=== PATIENT | female | born 1985 | race Caucasian/White ===

== ENCOUNTER 2022-12-12 08:22 | Observation (INO) | payer OTHER, SELFPAY ==
[2022-12-12] VITALS (26 sets, daily range): BP systolic 101–147; BP diastolic 60–119; PULSE 67–107; RESP 14–31; TEMP 36.6–37; O2SAT 97–100; BMI 25.3
--- NOTE | ~2022-12-12 | XR_ITS ---
Left Humerus Technique: AP and lateral views were obtained. Clinical History: Status post fall Findings: No fracture or dislocation is seen. Osseous alignment is anatomic. Visualized joint spaces are grossly preserved. Soft tissues are unremarkable. Impression: Unremarkable examination. No fracture or dislocation. Reviewed, dictated and finalized at location . Impression: Unremarkable examination. No fracture or dislocation.
--- NOTE | ~2022-12-12 | XR_ITS ---
XR chest 1V DATE: 12/12/2022 09:08 INDICATION: Seizure TECHNIQUE: AP chest COMPARISON: September 09, 2017 portable AP chest FINDINGS: Normal heart size. No hilar or mediastinal enlargement. No pulmonary infiltrate or consolid ation, pleural effusion or pulmonary vascular congestion or pneumothorax. Minimal thoracic dextroscoliosis. IMPRESSION: No active cardiopulmonary disease Reviewed, dictated and finalized at location B.
--- NOTE | ~2022-12-12 | CT_ITS ---
Non-contrast Head CT History: Status post fall COMPARISON: 12/12/2022 Technique: Axial non-contrast imaging of the brain was performed. Dose reduction technique was used on this scan by utilizing automated exposure control and iterative reconstruction technique. The dose -length product (DLP) was 605.33 mGy-cm. Findings: There is no evidence of intracranial hemorrhage, mass lesion, or acute infarct. Brain par enchyma appears normal. The ventricles and subarachnoid spaces are normal in size. The calvarium ap pears normal. The visualized paranasal sinuses and mastoid air cells are clear. Impression: No significant abnormality seen. Reviewed, dictated and finalized at location . Impression: No significant abnormality seen.
--- NOTE | ~2022-12-12 | CT_ITS ---
EXAMINATION: CT brain wo con DATE: 12/12/2022 08:59 INDICATION: Head injury. TECHNIQUE: Computed tomography (CT) of the head was performed without intravenous contrast. The mA wa s adjusted according to patient size. Iterative reconstruction technique was employed. The dose-lengt h product was 605.33 mGy-cm. COMPARISON: Head CT 09/09/2017 FINDINGS: There is no intracranial hemorrhage, acute infarction, or abnormal intracranial mass lesion . The ventricles are normal in size. There is mild mucosal thickening in the ethmoid sinuses. The mas toid air cells are normal. The orbits are normal. IMPRESSION: 1. Normal brain. Reviewed, dictated and finalized at location A. IMPRESSION: 1. Normal brain.
[2022-12-12 08:57] LABS: Ethanol < 10 mg/dL (<10)
[2022-12-12 09:18] LABS: Basophils Percent Auto 0.4 % (0.2-1.2); Hematocrit 43.5 % (37.0-47.0); Hemoglobin 14.1 g/dL (12.0-15.0); Immature Granulocyte Absolute 0.02 K/mm3 (0.00-0.031); Immature Granulocyte Percent A 0.3 % (0-0.5); Lymphocytes Absolute Auto 1.75 K/mm3 (0.9-3.2); Lymphocytes Percent Auto 23.4 % (18.3-44.2); Mean Corpuscular HGB Conc 32.4 g/dl (32-36); Mean Corpuscular Hemoglobin 27.9 pg (26-34); Mean Platelet Volume 10.8 fl (7.4-10.4); Monocytes Absolute Auto 0.5 K/mm3 (0.1-0.6); Monocytes Percent Auto 6.9 % (2.6-8.5); Neutrophils Absolute Auto 5.2 K/mm3 (1.3-6.7); Platelet Count Result 227 k/mm3 (150-375); Red Blood Count 5.06 M/mm3 (4.2-5.4); Red Cell Distribution Width 13.2 % (11.5-14.5); White Blood Count 7.5 K/mm3 (4.5-10.0)
[2022-12-12] MEDS: SODIUM CHLORIDE 0.9% IV 1,000 ML 999 ML IV CONT ×2 (09:18→12:29)
[2022-12-12 09:30] LABS: Alanine Aminotransferase 27 U/L (6-35); Albumin Level 4.6 g/dL (3.5-5.1); Alkaline Phosphatase 89 U/L (38-126); Anion Gap 14 mmol/L (8-16); Aspartate Amino Transferase 42 U/L (14-36); Bilirubin,Total 0.9 mg/dL (0.2-1.3); Blood Urea Nitrogen 27 mg/dL (7-17); Calcium 9.6 mg/dL (8.4-10.2); Carbon Dioxide 21 mmol/L (22-30); Chloride 105 mmol/L (98-107); Estimated CRCL calculation 42 ml/min; Estimated Glomerular Filt Rate 39; Glucose 92 mg/dL (65-110); Lipase 543 U/L (23-300); Sodium 140 mmol/L (137-145)
[2022-12-12 09:50] LABS: Amphetamine Screen Urine Negative (Negative); Barbiturate Screen Urine Negative (Negative); Benzodiazepines Screen Urine Negative (Negative); Cannabinoid Screen Urine Negative (Negative); Cocaine Screen Urine Negative (Negative); Methadone Screen Urine Negative (Negative); Opiate Screen Urine Negative (Negative); Phencyclidine Screen Urine Negative (Negative)
--- NOTE | 2022-12-12 10:08 | ED.GENADULT ---
HPI - General Adult General Chief complaint: Unspecified Stated complaint: convulsions Time Seen by Provider: 12/12/22 08:24 History of Present Illness HPI narrative: Patient is a 37-year-old female who [facility] having a [facility]. Patient initially altered upon arrival but then awoke. She was oriented x3 and could verbalize fact that she has history of seizures. She has not been compliant with her home Keppra. She has been in penitentiary due to opiate issues. Denies any extremity pain or other issue at this time. No additional provoking factors. Related Data Home Medications Medication Instructions Recorded Confirmed levetiracetam 500 mg tablet 500 mg PO BID 12/12/22 12/12/22 (Keppra) Allergies Allergy/AdvReac Type Severity Reaction Status Date / Time No Known Allergies Allergy Unverified 09/12/16 15:47 Review of Systems Review of Systems: ROS unobtainable: Yes unobtainable due to mental status PMFSH Surgical History Surgical History (Updated 12/12/22 @ 18:43 by Vasiliy Olivas MD) Surgical history unknown Social History Social History Smoking packs per day: 1 Smoking cigarettes per day: 20.0 Smoking status: Current every day smoker Tobacco type: cigarettes Alcohol intake: never Substance use type: opiates Lack of Transportation: No Lack of Food: Never True Current Housing: I Have Housing Concerned About Future Housing: No Difficulty Paying Gas/Electric Bills: No Difficulty Paying for Meds: Decline to Answer Currently Unemployed: Decline to Answer Education: Decline to Answer Difficulty w/ Childcare or Family Care: Decline to Answer Spiritual care concerns: No Exam Narrative: GENERAL: Well-appearing, well-nourished, and in no acute distress. HEAD: Normocephalic, atraumatic. EYES: PERRL and EOMI. ENT: Mucous membranes moist. NECK: Supple. CHEST: Clear to auscultation. No respiratory distress. HEART: Regular rate and rhythm. Normal peripheral pulses. ABDOMEN: Soft, nontender, nondistended. EXTREMITIES: Normal range of motion. No edema. SKIN: Warm, dry, scattered bruises. NEURO: Alert and oriented x3. In between episodes of seizures where patient is rhythmically shaking [id number]. No fixed tonic-clonic movements. Patient has no eye deviation. Intermittently will respond to pain. PSYCH: Normal mood and affect. Course Course Emergency Course: 1008: Repeat seizure x 2. Tachycardic into 160's. Ativan 2mg given. Will also give 1g Keppra. 1224: Discussed case with Dr. Bolaños. Patient has received her Keppra load. He feels if she is 4 hours seizure-free after the Keppra load should be able to be discharged with Keppra 750 mg twice a day. 1420: Patient with additional seizure. Will give additional 500 mg bolus of Keppra prior neurology recommendation. Additionally patient will go to the ICU and has been accepted by Dr. Light. Patient has had a seizure where it seems as if she is breathing throat. Only one of the seizures where she responsive to pain. There could be a component of pseudoseizures as well but given her previous history we will defer to the possibility that these are frequent recurrent seizures. Vital Signs Vital signs: Vital Signs Temperature 98 F 12/12/22 08:22 Pulse Rate 87 12/12/22 08:22 Respiratory Rate 24 H 12/12/22 08:22 Blood Pressure 114/75 12/12/22 08:22 Pulse Oximetry 99 12/12/22 08:22 Oxygen Delivery Room Air 12/12/22 08:22 Temperature 98.6 F 12/12/22 16:00 Pulse Rate 87 12/12/22 17:08 Respiratory Rate 14 12/12/22 17:08 Blood Pressure 110/71 12/12/22 17:08 Pulse Oximetry 98 12/12/22 17:08 Oxygen Delivery Room Air 12/12/22 08:22 Medical Decision Making Vital Signs Vital Signs: Vital Signs Temperature 98 F 12/12/22 08:22 Pulse Rate 87 12/12/22 08:22 Respiratory Rate 24 H 12/12/22 08:22 Blood Pressure 114/75 12/12/22 08:22 Pulse Oximetry 99
[2022-12-12 10:15] LABS: INR 1.1
[2022-12-12 10:16] LABS: Partial Thromboplastin Time 33.1 SECONDS (22.3-36.8)
[2022-12-12] MEDS: LORazepam INJ (*CRX) 2 MG/ML VIAL (10:17)
[2022-12-12] MEDS: levETIRAcetam 1000MG/NACL100ML 1,000 MG/100 ML BAG 400 MG IVPB (10:17)
--- NOTE | 2022-12-12 10:19 | PC.NURSE ---
[address] SA[address] Bridges observed this pt having what appeared to be a seizure for less than 30 seconds. evgeny Martinez went and retrieved seizure pads and seizure precautions were initiated. About 5 minutes later pt had another seizure that lasted 1-2 minutes, Dr. Olivas at bedside, 2mg Ativan administered per verbal order. Yuliana JACQUES administered the medication
--- NOTE | 2022-12-12 10:36 | PC.NURSE ---
Patient more awake at this time. Patient able to answer questions and states she has a history of seizures and is prescribed 1,000mg of Keppra daily. Patient states she has been out of her medication for awhile .
--- NOTE | 2022-12-12 10:45 | PC.NURSE ---
Patient began having full body seizure witnessed by this RN. Provider to bedside and verbal order for 1mg ativan to be given. Episode lasted about 1 minute. After convulsions were over, patient was able to answer questions.
[2022-12-12] MEDS: LORazepam INJ (*CRX) 2 MG/ML VIAL 1 MG IV PUSH (11:23)
--- NOTE | 2022-12-12 13:47 | PC.NURSE ---
Patient began having another full body seizure lasting around 2 minutes. 1/5 mg of ativan verbal order given.
[2022-12-12] MEDS: levETIRAcetam 500MG/NACL 100ML 500 MG/100 ML BAG 400 MG IVPB (14:04)
[2022-12-12] MEDS: LORazepam INJ (*CRX) 2 MG/ML VIAL IV PUSH ×3 (14:07→18:15)
--- NOTE | 2022-12-12 14:08 | PC.NURSE ---
Patient had another seizure episode lasting 2.5 minutes. verbal order for 1.5mg of Ativan to be given.
--- NOTE | 2022-12-12 14:20 | PC.NURSE ---
pt had another episode lasting roughly 1.5 minutes pt, able to withdraw from pain, pt A&O 4 directly after episode.
[2022-12-12 15:36] LABS: Creatine Kinase 442 U/L (30-135)
[2022-12-12 15:37] LABS: Lactic Acid Reflex 1.1 mmol/L (0.7-2.0)
--- NOTE | 2022-12-12 16:14 | PM.IMHP ---
H&P: HPI History of Present Illness Date/Time: 12/12/22 16:14 Chief Complaint: Convulsions Narrative: This is a 37-year-old female patient who was [facility] The patient has a history of heroin use. The patient stated she has a history of seizures and has not taken any of her medication. She also stated that she is addicted to narcotics and has not had any narcotics for 5 days. The patient is currently in longterm for opiate use. Her creatinine was 1.5 BUN is 27. GFR 39. Are total creatinine kinase is 442. Lipase is 523. Toxicology screen was negative. CT of the brain was read as normal. Chest x-ray was read as no active cardiopulmonary disease. Neurology has been consulted. The patient was given IV fluids, Keppra, and Ativan multiple times. Review of Systems Review of Systems: All systems reviewed & are unremarkable except as noted in HPI and below Constitutional: Constitutional: Reports as per HPI and Reports no additional constitutional complaints Eyes: Eyes: Reports as per HPI and Reports no additional eye complaints ENT: Reports system reviewed and no additional complaints, except as documented and Reports Normal hearing present Cardiovascular: Cardiovascular: Reports no additional cardiovascular complaints Respiratory: Respiratory: Reports no additional respiratory complaints and Reports no additional respiratory complaints Gastrointestinal: Gastrointestinal: Reports as per HPI and Reports no additional gastrointestinal complaints Musculoskeletal: Musculoskeletal: Reports no additional musculoskeletal complaints Integumentary/Breasts: Skin/Breast: Reports system reviewed and no additional complaints, except as docu and Reports as per HPI Neurologic: Reports system reviewed and no additional complaints, except as documented, Reports as per HPI and Reports Normal hearing present Psychiatric: Psychiatric: Reports no additional psychiatric complaints and Reports as per HPI Endocrine: Endocrine: Reports no additional endocrine complaints Hematologic/Lymphatic: Hematologic/Lymphatic: Reports no additional hematologic/lymphatic complaints Allergic/Immunologic: Allergic/Immunologic: Reports no additional allergic/immunologic complaints [facility] Past Medical History Medical History (Updated 12/12/22 @ 20:23 by Sri Myers NP) Heroin abuse Seizures Surgical History Surgical History (Updated 12/12/22 @ 20:13 by Sri Myers NP) History of tonsillectomy Social History Social History (Updated 12/12/22 @ 20:14 by Sri Myers NP) Social History: Heroin use. The patient has had 2 biological children and they have been placed with DCFS. She lives with her boyfriend. Code status full code Smoking packs per day: 1 Smoking cigarettes per day: 20.0 Smoking status: Current every day smoker Tobacco type: cigarettes Alcohol intake: never Substance use type: opiates Lack of Transportation: No Lack of Food: Never True Current Housing: I Have Housing Concerned About Future Housing: No Difficulty Paying Gas/Electric Bills: No Difficulty Paying for Meds: Decline to Answer Currently Unemployed: Decline to Answer Education: Decline to Answer Difficulty w/ Childcare or Family Care: Decline to Answer Spiritual care concerns: No Meds Home Medications and Allergies Home Medications Medication Instructions Recorded Confirmed Type levetiracetam 500 mg tablet 500 mg PO BID 12/12/22 12/12/22 History (Carmencita) Allergies Allergy/AdvReac Type Severity Reaction Status Date / Time No Known Allergies Allergy Unverified 09/12/16 15:47 Vital Signs Vital Signs - 24 hr 12/12/22 08:22 12/12/22 09:20 12/12/22 08:28 Temperature 36.6 C Pulse Rate 87 79 86 Respiratory Rate 24 H 18 16 Blood Pressure 114/75 147/119 H Pulse Oximetry 99 99 98 Oxygen Delivery Room Air 12/12/22 08:31 12/12/22 08:46 12/12/22 08:47 [place]a
--- NOTE | 2022-12-12 16:26 | ADMGEN ---
This patient, Shannan Orta, was admitted to Intensive Care Unit-5. Patient/family oriented to hospital policies and general routines including ID bracelet, bed and alarms, visiting hours, pain management, procedures, bathroom and other care routines, personal items, smoking policy, room service/diet, and visiting hours. Information on how to activate the Rapid Response Team has been discussed. Patient/Family are encouraged to report perceived risks to care and to ask questions if they do not understand what they are told or what they should do.
[2022-12-12] MEDS: LACTATED RINGERS 1,000 ML 100 ML IV CONT (16:35)
[2022-12-12] MEDS: levETIRAcetam Tablet 250 MG, levETIRAcetam Tablet 500 MG 750 MG PO (20:01)
[2022-12-13] VITALS (8 sets, daily range): BP systolic 99–130; BP diastolic 55–97; PULSE 64–103; RESP 14–26; TEMP 36.5–36.7; O2SAT 96–99
[2022-12-13] MEDS: LORazepam INJ (*CRX) 2 MG/ML VIAL IV PUSH ×3 (02:00→09:05)
[2022-12-13] MEDS: LACTATED RINGERS 1,000 ML 100 ML IV CONT (03:36)
[2022-12-13 03:49] LABS: Hematocrit 36.1 % (37.0-47.0); Hemoglobin 11.8 g/dL (12.0-15.0); Mean Corpuscular HGB Conc 32.7 g/dl (32-36); Mean Corpuscular Volume 85.7 fl (80-100); Mean Platelet Volume 10.5 fl (7.4-10.4); Platelet Count Result 187 k/mm3 (150-375); Red Blood Count 4.21 M/mm3 (4.2-5.4); Red Cell Distribution Width 13.2 % (11.5-14.5); White Blood Count 5.9 K/mm3 (4.5-10.0)
[2022-12-13 04:01] LABS: Alanine Aminotransferase 22 U/L (6-35); Albumin Level 3.7 g/dL (3.5-5.1); Alkaline Phosphatase 71 U/L (38-126); Anion Gap 5 mmol/L (8-16); Aspartate Amino Transferase 36 U/L (14-36); Bilirubin,Total 0.7 mg/dL (0.2-1.3); Blood Urea Nitrogen 18 mg/dL (7-17); Calcium 8.5 mg/dL (8.4-10.2); Carbon Dioxide 22 mmol/L (22-30); Chloride 112 mmol/L (98-107); Estimated CRCL calculation 50 ml/min; Estimated Glomerular Filt Rate 51; Glucose 80 mg/dL (65-110); Potassium 3.5 mmol/L (3.4-5.0); Sodium 139 mmol/L (137-145)
--- NOTE | 2022-12-13 05:01 | PC.NURSE ---
1999-scheduled Keppra given. pt noted to have jerking seizure-like activity. Did not last more than a minute. Immediately alert and oriented after 0030- pt has been repeatedly asking for food, Sri Myers called. Updated on most recent seizure activity being at 1999 and pt's requests to eat. Sri okora'ed regular diet. 0045 pt finishes eating and states i think I'm going to have another seizure . The patient noted to have jerking seizure-like activity again. Did not last a minute, but had several sporadic intermittent episodes. Immediately alert and oriented after 0150- Pt has more seizure-like activity, immediately after pt states i can't remember my name . Dr. Domingo called 0156, states okay to give an Ativan dose and continue to monitor. 0200 ativan given, pt states Valium has worked better for me in the past can I have that instead? 0435 pt awoke and has more seizure-like activity, Dr. Domingo called and informed 0436. Pt's significant other then comes out of room saying she's trying to get out of bed . This RN and another ran into room but pt fell onto floor before we were able to reach her. 0440 Dr Domingo called and informed of fall. Orders received
--- NOTE | 2022-12-13 08:19 | PM.EVENT ---
Event Note Event Note Event Note: Nurse notified me the patient sustained a fall. Patient was seen and examined at the bedside. She denies any head trauma. She is moving all extremities but reports left arm pain. Plan head CT, left humeral x-ray. Patient is complaining of insomnia. She had been treated on trazodone in the past. Trazodone 50 mg p.o. q.h.s.. ordered.
[2022-12-13 08:35] LABS: Lipase 714 U/L (23-300); Triglycerides 121 mg/dL (<150)
[2022-12-13] MEDS: POTASSIUM CHLORIDE 20 MEQ ER TABLET 40 MEQ PO (08:48)
[2022-12-13] MEDS: KCL 20 MEQ/D5/0.45% SOD CHL 1,000 ML 100 ML IV CONT (08:49)
--- NOTE | 2022-12-13 09:09 | WPDCNINT ---
Assessment and Plan Assessment and plan (1) Seizures: Code(s): R56.9 - Unspecified convulsions Status: Acute Assessment and Plan: Patient states she has history of epilepsy but was not on any treatment. Now presented with frequent seizures from alf Her presentation is questionable as her seizures are not classical and I suspect a component of pseudoseizures Continue Keppra Continue p.r.n. Ativan Continue seizure precautions EEG ordered Neurology consulted Head CT negative (2) Acute kidney injury: Code(s): N17.9 - Acute kidney failure, unspecified Status: Acute Assessment and Plan: Patient presented with elevated creatinine of 1.5. Baseline unknown Patient has mild rhabdomyolysis. She states that she was dehydrated at the end alf. Denies any filf-eou-cmnkbil medication use Check renal ultrasound Continue IV fluids Monitor CK level Check urine electrolytes (3) IV drug abuse: Code(s): F19.10 - Other psychoactive substance abuse, uncomplicated Status: Acute Assessment and Plan: Patient admits to IV drug abuse. Uses fentanyl but has not used any 3 weeks Screen for hepatitis and HIV (4) Pancreatitis: Code(s): K85.90 - Acute pancreatitis without necrosis or infection, unspecified Status: Acute Assessment and Plan: Patient has elevated lipase. Denies alcohol use Triglyceride level normal Check abdominal ultrasound Denies any abdominal pain at this time. No nausea vomiting. Clear liquid diet Plan DVT prophylaxis -SCDs Nutrition -clear liquid diet Code Status - Full Code Bookkeeping Clerks Supervisor Consult Note Consult date: 12/13/22 Reason for consult: Seizures HPI: Shannan Orta is a 37 year old female history of IV drug abuse and history of epilepsy presented to ER yesterday from alf with complaints of seizure. Patient states she used to take seizure medication long time ago but quit taking. Admitted IV fentanyl use denies any significant alcohol or drug use. She has been in alf for last few weeks. She states that she was discharged medically in the past from alf. ER patient had multiple episodes of seizure which were brief. She was also found to be having elevated creatinine and and lipase. She was given Keppra and admitted to ICU for further evaluation management. Overnight patient had a fall ICU and repeat head CT left humerus x-ray was done which were negative and a sitter at bedside were placed. Patient states that she does not remember anything and someone in the alf told her that she fell and hit her head. Which was all over her head. She complains of intermittent blurred vision and thinks the clock has 2 borders. She also points to her chest for pain and states it is secondary to frequent sternal rubs that medical staff has done who check on her during her seizures. She rates at 8/10 worse with deep breathing and palpation. Pain is sharp achy in quality no radiation. Patient states that since she has received does not remember her name her boyfriend's. States she knows she is in the hospital but does not know name of the hospital. Patient denies fever, chest pain, shortness of breath, cough, nausea vomiting, abdominal pain,, diarrhea, headache or constipation. All other systems were reviewed and were negative Since admission to ICU patient has exhibited several signs suggestive of pseudo seizures as patient once when nursing staff wanted to give her Ativan requested Valium while she she was having jerky movement stating that it works better for her. Her boyfriend is sitting at bedside who is completely indifferent to her seizure episode and continues to brother phone while she is having seizures. She is able to have conversation with him but then states that she does not remember his name. Patient was talking on the phone with a friend telling them that she is admitted at [facility] while she told me few minutes ago that she does not know
--- NOTE | 2022-12-13 09:13 | PC.NURSE ---
0853: pt wanting food and water; discussed we couldn't do that right now due to needing to be nothing by mouth until after the ultrasound; pt started crying stating she hasn't eaten in 8 days and started seizing 0854: called Dr. Light to bedside; patient stopped seizing 0855: pt started seizing again but did grab RN's arm at one point; when RN asked to let go, pt immediately let go; 00: pt continuing to seize move side to side in bed 09: ativan given; seizure immediately stopped; pt tearful didn't know name but knew we were at [facility] and started asking about her belongings from the long term
[2022-12-13] MEDS: levETIRAcetam Tablet 250 MG, levETIRAcetam Tablet 500 MG 750 MG PO (09:47)
--- NOTE | 2022-12-13 10:07 | PC.NURSE ---
0940: called to bedside as patient was having another seizure; RN stated that unfortunately she could not have any more ativan at this point 0942: patient awake and talking and asking about leaving ama as long as we wouldn't call the snf on her; RN stated I would not be doing that and it is her decision 0958: pt signed AMA papers; IV access was removed; paper scrubs and hospital socks were given 1005: pt's boyfriend wheeled her out in wheelchair to leave
[2022-12-13 10:36] LABS: Hepatitis B Surface Antigen Negative (Negative)
[2022-12-13 10:38] LABS: HIV 1/2 Ab P24 Ag Result Negative (Negative)
[2022-12-13 10:42] LABS: HAV RESULT Negative (Negative); Hepatitis B Core IgM Result Negative (Negative)
[2022-12-13 10:55] LABS: Hepatitis C Virus Antibody Reactive (Negative)
[2022-12-17 14:17] LABS: Hepatitis C RNA, Quant PCR 65600 IU/mL
== END 2022-12-13 10:05 | disposition left against medical advice (07) ==
LOC: ANHED 14:22 → ANHICU 14:42
PROVIDERS: Internal Medicine; Admitting Provider Hospitalist; Emergency Provider Emergency Medicine; Visit Provider Hospitalist
DX: R56.9 Unspecified convulsions (principal); N17.9 Acute kidney failure, unspecified; R74.8 Abnormal levels of other serum enzymes; M62.82 Rhabdomyolysis; Z11.4 Encounter for screening for human immunodeficiency virus [HIV]; K85.90 Acute pancreatitis without necrosis or infection, unspecified; T42.6X6A Underdosing of other antiepileptic and sedative-hypnotic drugs, initial encounter; Z91.148 Patient's other noncompliance with medication regimen for other reason; S09.90XA Unspecified injury of head, initial encounter; M79.602 Pain in left arm; W19.XXXA Unspecified fall, initial encounter; R00.0 Tachycardia, unspecified; R79.89 Other specified abnormal findings of blood chemistry; G47.00 Insomnia, unspecified; F11.90 Opioid use, unspecified, uncomplicated; F17.210 Nicotine dependence, cigarettes, uncomplicated; Z79.899 Other long term (current) drug therapy
CPT/HCPCS: 36415; 70450; 71045; 73060; 80053; 80074; 80307; 81025; 82550; 83605; 83690; 83735; 84478; 85025; 85027; 85610; 85730; 86703; 87522; 96361; 96365; 96366; 96374; 96375; 96376; 99285; A9270; G0378; G0379; G0432; J1953; J2060; J3480; J7030; J7120

== ENCOUNTER 2022-12-16 14:07 | Emergency (ER) | payer OTHER, SELFPAY ==
[2022-12-16 14:05] VITALS: BP 112/80; PULSE 96; RESP 25; TEMP 36.6; O2SAT 99
--- NOTE | 2022-12-16 14:18 | ECG_ITS ---
Measurements Intervals [place] Rate: 94 P: 42 GA: 128 QRS: 87 QRSD: 94 T: 70 QT: 342 QTc: 428 Interpretive Statements SINUS RHYTHM MINIMAL Q WAVES- INFERIOR LEADS BASELINE ARTIFACT- V3-V4 BORDERLINE ECG NO PREVIOUS ECG AVAILABLE FOR COMPARISON Electronically Signed On 12-16-2022 16:26:56 CDT by Roman Berumen D.O.
--- NOTE | 2022-12-16 14:20 | ED.GENADULT ---
HPI - General Adult General Chief complaint: Seizure Stated complaint: seizure-like activity Time Seen by Provider: 12/16/22 14:13 History of Present Illness HPI narrative: 37 year old female history of seizures, inmate, brought in by guards for seizure like behavior. Per longterm staff, patient seen on camera going to ground slowly and having seizure like behavior. Patient brought to ED for further evaluation. Denied head strike, evidence of ingestions, medical complaints prior to seizure episode. ROS limited due to condition Related Data Home Medications Medication Instructions Recorded Confirmed levetiracetam 500 mg tablet 500 mg PO BID 12/12/22 12/12/22 (Keppra) Allergies Allergy/AdvReac Type Severity Reaction Status Date / Time No Known Allergies Allergy Unverified 12/16/22 14:19 [facility] Past Medical History Medical History Heroin abuse Seizures Surgical History Surgical History History of tonsillectomy Social History Social History Social History: Heroin use. The patient has had 2 biological children and they have been placed with DCFS. She lives with her boyfriend. Code status full code Smoking packs per day: 1 Smoking cigarettes per day: 20.0 Smoking status: Current every day smoker Tobacco type: cigarettes Alcohol intake: never Substance use type: opiates Lack of Transportation: No Lack of Food: Never True Current Housing: I Have Housing Concerned About Future Housing: No Difficulty Paying Gas/Electric Bills: No Difficulty Paying for Meds: Decline to Answer Currently Unemployed: Decline to Answer Education: Decline to Answer Difficulty w/ Childcare or Family Care: Decline to Answer Spiritual care concerns: No Exam Narrative: General: Somnolent, calm and cooperative, no acute distress, phonating, sitting comfortably during visit HEENT: Pupils equal round and reactive to light, patient with eyes closed, however tracks, blinks to threat, extra ocular movements intact, no conjunctival injection, head atraumatic, neck supple without meningismus, no tongue lacerations, missing multiple teeth Cardiovascular: Regular rate and rhythm, no visible jugular venous distension Respiratory: Lungs clear to auscultation bilaterally, no wheezing/rales/rhonchi Abdominal: soft, non-tender, non-distended, no guarding, no rebound/peritoneal signs, no costovertebral tenderness to palpation Back: no midline tenderness to palpation, no step offs Extremities: No edema, palpable peripheral pulses, warm, well perfused, no tenderness to bilateral calves, no clonus Neurological: Somnolent Course Consultations Consultation #1: Case Discussed with neurologist Dr. Bolaños. Recommended 500mg PO BID to be prescribed so she could take it in longterm. Date: 12/16/22 Time: 16:32 Vital Signs Vital signs: Vital Signs Temperature 97.8 F 12/16/22 14:05 Pulse Rate 96 12/16/22 14:05 Respiratory Rate 25 H 12/16/22 14:05 Blood Pressure 112/80 12/16/22 14:05 Pulse Oximetry 99 12/16/22 14:05 Oxygen Delivery Room Air 12/16/22 14:05 Temperature 97.8 F 12/16/22 14:05 Pulse Rate 88 12/16/22 16:09 Respiratory Rate 14 12/16/22 16:09 Blood Pressure 116/71 12/16/22 16:09 Pulse Oximetry 98 12/16/22 16:09 Oxygen Delivery Room Air 12/16/22 15:02 Medical Decision Making MDM Narrative Medical decision making narrative: 37 year old female history of seizure, inmate brought in by longterm staff for seizure like behavior. Physical exam benign, atraumatic, somnolent however blinks to threat, tracks room, no clonus, sitting comfortably in bed, vitals stable. Differential diagnosis includes but not limited to: seizure vs psychogenic non-epileptic seizures. Intracranial process considered, unlikely at this time given
[2022-12-16 14:39] LABS: Basophils Percent Auto 0.7 % (0.2-1.2); Hematocrit 38.6 % (37.0-47.0); Hemoglobin 12.5 g/dL (12.0-15.0); Immature Granulocyte Absolute 0.02 K/mm3 (0.00-0.031); Immature Granulocyte Percent A 0.4 % (0-0.5); Lymphocytes Percent Auto 37.4 % (18.3-44.2); Mean Corpuscular HGB Conc 32.4 g/dl (32-36); Mean Corpuscular Hemoglobin 28.1 pg (26-34); Mean Corpuscular Volume 86.7 fl (80-100); Mean Platelet Volume 11.2 fl (7.4-10.4); Monocytes Absolute Auto 0.4 K/mm3 (0.1-0.6); Monocytes Percent Auto 8.6 % (2.6-8.5); Neutrophils Absolute Auto 2.4 K/mm3 (1.3-6.7); Neutrophils Percent Auto 52.9 % (45.5-73.1); Platelet Count Result 233 k/mm3 (150-375); Red Blood Count 4.45 M/mm3 (4.2-5.4); White Blood Count 4.6 K/mm3 (4.5-10.0)
[2022-12-16 14:49] LABS: Lactic Acid Reflex 1.8 mmol/L (0.7-2.0)
[2022-12-16 14:52] LABS: Acetaminophen 13 ug/mL (10-30); Ethanol < 10 mg/dL (<10); Salicylate < 1.0 mg/dL (2-20)
[2022-12-16 15:02] VITALS: PULSE 69; O2SAT 97
[2022-12-16 15:06] LABS: Anion Gap 9 mmol/L (8-16); Blood Urea Nitrogen 18 mg/dL (7-17); Calcium 9.6 mg/dL (8.4-10.2); Carbon Dioxide 25 mmol/L (22-30); Chloride 106 mmol/L (98-107); Estimated CRCL calculation 47 ml/min; Estimated Glomerular Filt Rate 51; Glucose 89 mg/dL (65-110); Potassium 3.8 mmol/L (3.4-5.0); Sodium 140 mmol/L (137-145)
[2022-12-16 15:13] LABS: Alanine Aminotransferase 30 U/L (6-35); Albumin Level 4.3 g/dL (3.5-5.1); Alkaline Phosphatase 68 U/L (38-126); Aspartate Amino Transferase 44 U/L (14-36); Bilirubin,Total 0.7 mg/dL (0.2-1.3)
[2022-12-16 16:09] VITALS: BP 116/71; PULSE 88; RESP 14; O2SAT 98
--- NOTE | 2022-12-16 16:36 | PM.EVENT ---
Event Note Event Note Event Note: I was asked to admit the patient. I had previously admitted the patient as she was having pseudoseizures. The correctional officers are at the bedside with the patient. The patient has pseudo seizures and I believe that she needs psychiatric care of which we do not offer here at [facility]. It was reported that the patient would not received any seizure medication over the weekend in shelter. I personally spoke with the correctional officer lieutenant to ensure me that the patient would receive medication over the weekend. The patient was given a dose of Keppra. I spoke with the neurologist who suggested that the patient have the loading dose of Keppra and then be sent home on p.o. medications. The patient may be released back to shelter. The patient has had a previous admission of which she has signed out against medical advice. Several years ago the patient had been incarcerated and the same events have occurred. When I spoke with the correctional officers they stated that this patient has done this four other times. The patient has a history of heroin abuse. I feel that this admission is not appropriate at this time and that she may be returned safely back to shelter. Neurology recommended that the patient be given Keppra 500 mg p.o. b.i.d. prescription to be given at the shelter.
[2022-12-16] MEDS: levETIRAcetam 500MG/NACL 100ML 500 MG/100 ML BAG 400 MG IVPB (16:55)
[2022-12-16 17:19] VITALS: BP 101/70; PULSE 83; RESP 16; O2SAT 99
== END 2022-12-16 17:21 ==
PROVIDERS: Emergency Provider Emergency Medicine
DX: R56.9 Unspecified convulsions (principal); F11.10 Opioid abuse, uncomplicated; R94.31 Abnormal electrocardiogram [ECG] [EKG]
CPT/HCPCS: 36415; 80048; 80076; 80307; 83605; 85025; 93005; 96365; 96376; 99284; J1953

== ENCOUNTER 2025-01-30 09:39 | Emergency (ER) | payer MEDICAID, SELFPAY ==
--- OUTSIDE RECORDS SUMMARY | 2013-03-24 06:31 | XMS_ITS | Continuity of Care Document ---
Author Organization [facility] Address [address] [place] [address] [place] [address] Phone Care Team Providers Care Senior Director Finance Name Role Phone Lincoln Rivas MD Unavailable Unavailable Allergies, Adverse Reactions, Alerts Substance Reaction Status Criticality naproxen Active No Information Medications Medication Instructions Dosage Effective Dates (start - stop) Status Comments Alton 5 mg-325 mg tablet take 1 tablet by oral route every 6 hours as needed for pain - Active PRN for pain, avoid driving or operate machines Procedures Procedure Date PREV VISIT, EST, AGE 18-39 OFFICE/OUTPATIENT VISIT, [facility] Advance Directives Directive Yes / No Effective Date File Name No Information Encounters Encounter Description Practice Location Reason(s) For Visit Diagnoses Date Provider Providers Copied on Encounter PREV VISIT, EST, AGE 18-39 [facility], [address] [place], [id number], [place] tel:[phone] [facility] Physical (chief complaint) Routine Medical ExamRoutine Medical Exam Rob Stark. [address] [place], [place], [id number], [place]. tel:[phone] Referring Provider: Lincoln Rivas, [address] [place], [id number]. tel:[phone] OFFICE/OUTPAT IENT VISIT, [facility], [address] [place], [id number], tel:[phone] [facility] hip pain (chief complaint) Pain in joint involving lower legLumbago Rob Stark. [address] [place], [id number], . tel:[phone] Referring Provider: Hali Wiseman [address], [place], [place], [id number]. tel:[phone] Family History Family Member Type Diagnosis Age At Onset Mother Problem (finding) RA Brother Problem (finding) Alive and well Father Problem (finding) Unknown Disease Payers Payer name Insurance type Covered democrat ID Authoriza tion(s) No Information Social History Type Description Quantity Date Captured Comments Alcohol Use Details No Caffeine Use Details Unknown Tobacco Use Status No Information Smoking Status Current every day smoker 2012 Sex Female Vital Signs Date / Time: Height Weight BMI Pulse Rate Blood Pressure Temperature Respiratory Rate Body Surface Area Head Circumference BMI percentile Pulse Ox Inhaled Ox 11:34 AM 63.00 in 129.75 lbs 22.9 8 kg/m eter (2) 78 /min 111/74 mm[Hg] 97.6 F 16 /min Chief Complaint And Reason For Visit From encounter dated '03/24/2013 11:31'. Physical (chief complaint) Plan Of Treatment Date Type Action Status Goal Tobacco cessation counseling completed Goal Tobacco cessation counseling completed Referral Ordered: Physical Therapy (related to Lumbago) ordered Referral Referred To: Physical Therapy Ordered: Referral: Physical Therapy. Evaluate and treat. ordered Referral Ordered: LUMBAR XRAY AP AND LAT ONLY ordered Referral Ordered: HIP XRAY AP/LAT Bilateral ordered History Of Present Illness Encounter Date Complaint History Of Prese nt Illness No Information Instructions Date Instruction Additional Infor mation stretching exercise Related to L umbago Assessments Type Assessment Date No Information Mental Status Date Cognitive Assessment Orientation - [place] ed to time, place, person, situation.
--- OUTSIDE RECORDS SUMMARY | 2016-05-22 19:00 | XMS_ITS | Continuity of Care Document ---
Author Organization [facility] Address [address] [place] [address] Phone Care Team Providers Care Vp Design Name Role Phone Damon Burkett MD Unavailable Unavailable Advance Directives Directive Yes / No Effective Date File Name No Information Encounters Encounter Description Practice Location Reason(s) For Visit Diagnoses Date Provider Providers Copied on Encounter [facility], [address], [place], [place], [id number], tel:[phone] [facility] No Information Kwadwo Jose. [address] [place] [address], [address], [place], [place], [id number], . tel:[phone] Referring Provider: Damon Burkett, [address] [place] [address], [place], [address]. tel:[phone] Family History Family Member Type Diagnosis Age At Onset No Information Payers Payer name Insurance type Covered constitution party ID Authoriza tishin(s) [place] [employer] [id number] Social History Type Description Quantity Date Captured Comments Sex Female Smoking Status No Information Chief Complaint And Reason For Visit No Information Reason For Referral Reason For Referral No Information History Of Present Illness Encounter Date Complaint History Of Prese nt Illness No Information Functional Status Date Functional Assessmen t No Information Instructions Date Instruction Additional Infor mation No Information Assessments Type Assessment Date No Information Patient Care Teams Name Effective Dates (start - stop) Status Members No Information
--- OUTSIDE RECORDS SUMMARY | 2025-01-30 09:45 | XMS_ITS | Clinical Summary ---
Author Organization [facility] Address [address] [place] [address] Phone Care Team Providers Care Social Insurance Adviser Name Role Phone Nilson Ledesma APRN, MARKET ANALYST Primary Care Provid er Lalita Pizarro APRN, RN RADIOLOGY Unavailable [phone] Allergies Active Allergy Reactions Criticality Noted Date Comments Naproxen Nausea 02/04/2016 Medications sertraline (ZOLOFT) 50 MG Tablet 3 Active QUEtiapine (SEROquel) 25 MG TabletIndicatio ns:Agitation Take 25 mg by mouth 2 times daily as needed. Indications: Agitation Active QUEtiapine Fumarate (SEROquel) 50 MG Tablet Take 3 Tablets by mouth nightly. 180 Tablet 3 Active Additional Information Patient not taking.Reported on 06/14/2023 divalproex (DEPAKOTE) 500 MG Tablet Delayed Response Take 1 Tablet by mouth 2 times daily. Take 500 mg twice a day for 4 weeks, followed by 500 mg daily for 2 weeks, and then stopped taking 90 Tablet 3 Active Additional Information Patient not taking.Reported on 06/14/2023 Priftin 150 MG Tablet Take 150 mg by mouth daily. 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 Acute pyelonephritis 08/15/2020 JAY (acute kidney injury) 08/15/2020 Hyponatremia 08/15/2020 Acute cystitis 08/15/2020 Anxiety Methamphetamine use Opioid abuse Resolved Problems Problem Noted Date Diagnosed Date Resolved Date Seizure 01/23/2023 Immunizations Immunization Administration Dates Next Due Influenza Vaccine, Quadrivalent, PF 02/20/2017 Family History Medical History Relation Name Comments No Known Problems Father Hypertension Mother Hypoparathyroidism Mother Lupus Mother Relation Name Status Comments Father Alive Mother Alive Social History Tobacco Use Types Packs/Day Years Used Date Smoking Tobacco: Every Day Cigarettes 0.5 20 Smokeless Tobacco: Never Alcohol Use Standard Drinks/Week Comments No 0 (1 standard drink = 0.6 oz pur e alcohol) Comments Unknown Sex and Gender Information Value Date Recorded Sex Assigned at Not on file Legal Sex Female 9:35 PM CDT Gender Identity Not on file Sexual Orientation Not on file Last Filed Vital Signs Vital Sign Reading Time Taken Comments Blood Pressure 134/76 06/14/2023 2:24 PM BOOKMAKER MAP Pulse 78 06/14/2023 2:24 PM BOOKMAKER MAP Temperature 36.1 C (97 F) 06/14/2023 2:24 PM BOOKMAKER MAP Respiratory Rate 18 04/19/2023 12:58 PM BOOKMAKER MAP Oxygen Saturation 98% 06/14/2023 2:24 PM BOOKMAKER MAP Inhaled Oxygen Concentration - - Weight 66.7 kg (147 lb) 06/14/2023 2:24 PM BOOKMAKER MAP Height 160 cm (5' 3) 06/14/2023 2:24 PM BOOKMAKER MAP Body Mass Index 26.04 06/14/2023 2:24 PM BOOKMAKER MAP Plan of Treatment Health Maintenance Due Date Last Done Comments TdaP Immunization 1986 Hepatitis B Immunization (1 of 3 - 19+ 3-dose series) 2005 Pneumococcal Immunization Co mbined (1 of 2 - PCV) 2005 Pap Smear 11/07/2007 Human Papillomavirus (HPV) Immunization (1 - 3-dose SCDM series) 2013 Cervical Cancer Screening (CCS) 2016 HPV/Cotest 2016 Influenza Immunization (#1) 2025 02/20/2017 SARS-COV-2 Immunization (2023-25 season) 2025 Respiratory Syncytial Virus (RSV) Immunization (Adult) (1 - 1-dose 75+ series) 2061 Meningococcal Immunization (ACWY) Aged Out No longer eligible based on patient's age to complete this topic Rotavirus Immunization Aged Out No lo nger eligible based on patient's age to complete this topic Insurance MEDICAID [place] Advance Directives * Full Code (Latest Code Status on File) Date Activated Date Inactivated Comments 01/20/2023 9:38 AM 01/23/2023 5:55 PM CPR-Full Gustavo atment: FULL ARREST: Attempt Resuscitation/CPR wit intubation and mechanical ventilation. PRE-ARREST: Use entire range of life support measures to stabilize the patient. * Full Code Date Activated Date Inactivated Comments 08/15/2020 12:50 AM 08/17/2020 8:23 PM CPR-Full Tr eatment: FULL ARREST: Attempt Resuscitation/CPR wit intubation and mechanical ventilation. PRE-ARREST: Use entire range of life support measures to stabilize the patient. Care Teams Social Insurance Adviser Relationship Specialty Start Date End Date Nilson Ledesma PAPER COATING SUPERVISOR, MARKET ANALYST PCP - General Advanced Practice Nurse 02/08/23 Lalita Pizarro APRN, RN RADIOLOGY [address] [place] [address] Nurse Practitioner Advanced Practice Nurse 06/14/23
--- OUTSIDE RECORDS SUMMARY | 2025-01-30 09:45 | XMS_ITS | Clinical Summary ---
Author Organization [facility] Address [address] [place] [address] Care Team Providers Care Advanced Practice Psychiatric Nurse Name Role Phone Unavailable Primary Care Provider Unavailabl e Source Comments [facility],non-owned Affiliates and Associated Physician Practices is amultiple site organization consisting of ambulatory clinics and hospital sitesin [place], [place], [place] and [place]. This disclosure is being madepursuant to the Care Everywhere program and may not contain all information available regarding this patient. Last updated 18.[facility] Allergies Active Allergy Reactions Criticality Noted Date Comments Naproxen GI Discomfort 02/19/2017 Medications * This document contains information received from the source organization and may not represent a complete record from that organization. * Be aware that medications may not be up to date on this document. Alwaysverify current medications with the patient. hydrOXYzine hcl (ATARAX) 25 MG tabletIndicatio ns:Anxiety Neurosis (Inactive) Take 1 Tab by mouth 4 times daily as needed Reasons: Anxiety Neurosis 120 Tab 1 7 Active LORazepam (ATIVAN) 1 MG tabletIndicatio ns:Anxiety Take 1 Tab by mouth every 8 hours as needed for Anxiety Reasons: Feeling Anxious 90 Tab 7 Active levETIRAcetam (KEPPRA) 1000 MG tabletIndicatio ns:Focal Seizure Take 1 Tab by mouth 2 times daily Reasons: Partial Onset Seizures 60 Tab 1 7 Active QUEtiapine (SEROQUEL) 100 MG tabletIndicatio ns:psychosis Take 1 Tab by mouth at bedtime Reasons: psychosis 30 Tab 1 7 Active QUEtiapine (SEROQUEL) 50 MG tabletIndicatio ns:Psychosis,ps ychosis Take 1 Tab by mouth once daily Reasons: Psychosis, psychosis 30 Tab 1 7 Active nicotine (NICODERM CQ) 21 MG/24HR patchIndication s:Nicotine Dependence Apply 1 Patch to skin once daily Remove old patch before applying new patch. Reasons: Nicotine Addiction 5 Patch 1 7 Active Active Problems Problem Noted Date Diagnosed Date Seizures 02/22/2017 Polysubstance abuse 02/22/2017 Severe episode of recurrent major depressive disorder, without psychotic features 02/19/2017 Immunizations Immunization Administration Dates Next Due INFLUENZA VACCINE, QUADR. (F LUZONE; FLULAVAL; FLUARIX; AFLURIA QUADRIVALENT; 6MO+), 0.5 ML (IIV4) 02/20/2017 Social History Tobacco Use Types Packs/Day Years Used Date Smoking Tobacco: Every Day Cigarettes Smokeless Tobacco: Never Tobacco Cessation:Ready to Q uit: Not Asked; Counseling Given: Not Answered Alcohol Use Standard Drinks/Week Comments No 0 (1 standard drink = 0.6 oz pur e alcohol) Comments Unknown Sex and Gender Information Value Date Recorded Sex Assigned at Not on file Legal Sex Female 2:53 AM CDT Gender Identity Not on file Sexual Orientation Not on file Last Filed Vital Signs Vital Sign Reading Time Taken Comments Blood Pressure 132/86 12/26/2023 7:41 PM CDT Pulse 69 12/26/2023 7:41 PM CDT Temperature 36 C (96.8 F) 12/26/2023 7:41 PM CDT Respiratory Rate 18 12/26/2023 7:41 PM CDT Oxygen Saturation 99% 12/26/2023 7:41 PM CDT Inhaled Oxygen Concentration - - Weight 62.1 kg (137 lb) 12/26/2023 7:41 PM CDT Height 160 cm (5' 3) 12/26/2023 7:41 PM CDT Body Mass Index 24.27 12/26/2023 7:41 PM CDT Plan of Treatment Health Maintenance Due Date Last Done Comments DTAP/TDAP/TD VACCINES (1 - Tdap) 2005 HEPATITIS B VACCINE (1 of 3 - 19+ 3-dose series) 2005 PNEUMOCOCCAL VACCINE (1 of 2 - PCV) 2005 PAP SMEAR 11/07/2007 HPV VACCINE (1 - 3-dose SCDM series) 2013 DEPRESSION SCREENING 05/27/2024 COVID-19 VACCINE ( season) 2025 INFLUENZA VACCINE (#1) 2025 02/20/2017 ZOSTER VACCINE (1 of 2) 2036 HIV SCREENING Completed 08/16/2020 HEPATITIS C SCREENING Completed 08/17/2020 , 08/17/2020, 08/17/2020, Additional history exists HIB VACCINE Aged Out No longer eligi ble based on patient's age to complete this topic MENINGOCOCCAL (Group B) VACCINE SHARED DECISION-MAKING Aged Out No longer eligible based on patient's age to complete this topic MENINGOCOCCAL GROUPS A/C/Y/W VACCINE Aged Out No longer eligible based on patient's age to complete this topic [place] [address] [place] [address] MEDICAID - OUT OF STATE [facility] Advance Directives * Full Code (Latest Code Status on File) Date Activated Date Inactivated Comments 02/25/2017 10:16 PM 02/26/2017 12:20 PM * Full Code Date Activated Date Inactivated Comments 02/25/2017 6:30 PM 02/25/2017 10:16 PM * Full Code Date Activated Date Inactivated Comments 02/24/2017 6:39 PM 02/25/2017 6:30 PM * Full Code Date Activated Date Inactivated Comments 02/24/2017 6:23 PM 02/24/2017 6:39 PM * Full Code Date Activated Date Inactivated Comments 02/21/2017 2:59 PM 02/24/2017 6:23 PM
--- OUTSIDE RECORDS SUMMARY | 2025-01-30 09:45 | XMS_ITS | Encounter Summary ---
Author Organization [facility] Address [address] [place] [address] Care Team Providers Care Sports Complex Attendant Name Role Phone No, Physician Primary Care Provider [phone] Encounter Details Date Type Department Care Team (Late st Contact Info) Description 07/17/2017 Documentation [facility] [address] [place] [address] Lalita Mckeon RN Social History Tobacco Use Types Packs/Day Years Used Date Smoking Tobacco: Every Day Cigarettes Smokeless Tobacco: Never Alcohol Use Standard Drinks/Week Comments No 0 (1 standard drink = 0.6 oz pur e alcohol) Comments Unknown Sex and Gender Information Value Date Recorded Sex Assigned at Not on file Legal Sex Female 2:33 AM BUSINESS MANAGER [employer] Gender Identity Not on file Sexual Orientation Not on file documented as of this encounter Plan of Treatment Not on file documented as of this encounter Visit Diagnoses Not on filedocumented in this encounter Additional Health Concerns Infection Onset Date Last Indicated Resolved Time MRSA Comment:02/19/17 Nasal Swab negative for MRSA, need one more negative to clear MRSA flag MRSA+Vaginal wnd 11/22/15 11/23/2013 11/23/2013 01/11/2021 5:00 AM CDT documented as of this encounter Care Teams Sports Complex Attendant Relationship Specialty Start Date End Date No, Physician PCP - General 09/07/16 documented as of this encounter
--- OUTSIDE RECORDS SUMMARY | 2025-01-30 09:45 | XMS_ITS | Encounter Summary ---
Author Organization [facility] Healthcare Address [address] [place] [address] Care Team Providers Care Clerical And Administrative Workers Name Role Phone No, Physician Primary Care Provider [phone] Encounter Details Date Type Department Care Team (Late st Contact Info) Description 06/11/2017 Documentation [facility] [address] [place] [id number] Yanira Garrison MD [address] [address] Social History Tobacco Use Types Packs/Day Years Used Date Smoking Tobacco: Every Day Cigarettes Smokeless Tobacco: Never Alcohol Use Standard Drinks/Week Comments No 0 (1 standard drink = 0.6 oz pur e alcohol) Comments Unknown Sex and Gender Information Value Date Recorded Sex Assigned at Not on file Legal Sex Female 2:33 AM PNEUMATIC TOOL OPERATOR Gender Identity Not on file Sexual Orientation [...] documented as of this encounter Care Teams Clerical And Administrative Workers Relationship Specialty Start Date End Date No, Physician PCP - General 09/07/16 documented as of this encounter
[2025-01-30 09:46] VITALS: BP 134/67; PULSE 106; RESP 20; TEMP 36.4; O2SAT 100
--- NOTE | 2025-01-30 09:56 | ED.MEDCLEAR ---
HPI - Medical Clearance General Chief complaint: Medical Clearance Stated complaint: needs medical clearance for rehab Time Seen by Provider: 01/30/25 09:45 Source: patient and RN notes reviewed Mode of arrival: ambulatory Limitations: no limitations History of Present Illness HPI Narrative: 39-year-old female presents Express Care requesting medical clearance to be admitted to an inpatient drug rehab today. Patient says she has medical clearance because she told them that she had a possible seizure 2 days ago. Patient says she was on the ground able unable to move says she is able to hear but not able to see. Patient has been diagnosed with epileptic seizures and pseudoseizures. Patient no longer takes Keppra. Patient denies having any other seizures since. Patient has no other complaints. Patient has no symptoms currently. Related Information Allergies Allergy/AdvReac Type Severity Reaction Status Date / Time No Known Allergies Allergy Unverified 12/16/22 14:19 Review of Systems Review of Systems: CONSTITUTIONAL: Denies fever, chills, or sweats. EYES: Denies visual changes, redness, or discharge. ENT: Denies rhinorrhea, congestion, sore throat, or otalgia. CARDIOVASCULAR: Denies chest pain, palpitations, dizziness, lightheadedness, or edema. RESPIRATORY: Denies cough or dyspnea. GASTROINTESTINAL: Denies abdominal pain, nausea, vomiting, or diarrhea. GENITOURINARY: Denies dysuria or hematuria. SKIN: Denies rash or itching. MUSCULOSKELETAL: Denies back pain, joint pain, or myalgia. NEUROLOGIC: Denies headache, numbness, loss of consciousness or weakness. Positive for seizure-like activity. PSYCHIATRIC: Denies anxiety or depression. All other systems reviewed are negative, except as documented in HPI. [facility] Past Medical History Medical History Heroin abuse Seizures Surgical History Surgical History History of tonsillectomy Social History Social History Social History: Heroin use. The patient has had 2 biological children and they have been placed with DCFS. She lives with her boyfriend. Code status full code Smoking packs per day: 1 Smoking cigarettes per day: 20.0 Smoking status: Current every day smoker Tobacco type: cigarettes Alcohol intake: never Substance use type: opiates Lack of Transportation: No Lack of Food: Never True Current Housing: I Have Housing Concerned About Future Housing: No Difficulty Paying Gas/Electric Bills: No Difficulty Paying for Meds: Decline to Answer Currently Unemployed: Decline to Answer Education: Decline to Answer Difficulty w/ Childcare or Family Care: Decline to Answer Spiritual care concerns: No Comments At the time of my signature, I reviewed and agree with the nursing past medical, surgical, social, and family history. There is no relevant family history pertinent to the patient complaint. Exam Narrative: GENERAL: This is a well-nourished, well-developed adult, in no apparent distress. They are non ill-appearing, nontoxic appearing. HEAD: normocephalic, atraumatic. EYES: Sclera clear/white. Conjunctiva normal. Vision is grossly intact. Extraocular movements intact. Pupils PERRLA EARS: External ears normal, Hearing grossly intact. NOSE: External nose normal THROAT: Mucous membranes moist, NECK: Neck supple, CARDIOVASCULAR: Regular rate and rhythm RESPIRATORY: Respiratory rate normal, respiratory effort nonlabored, no respiratory distress SKIN: warm, Dry, intact with no suspicious lesions or rash, good texture and turgor. NEURO: awake, alert, and oriented to person, place and time. There were no obvious focal neurologic abnormalities. Cranial nerve 2-12 grossly intact. EXTREMITIES: No joint tenderness, effusion, or edema noted. Course Course Emergency Course: Portions of this record may have been created with voice recognition software Level of Care: Express Care Visit Vital Signs Vital signs: Vital Signs Temperature 97.5 F L 01/30/25 09:46 Pulse Rate 106 H 01/30/25 09:46 Respiratory Rate 20 01/30/25 09:46 Blood Pressure 134/67 01/30/25 09:46 Pulse Oximetry 100 01/30/25 09:46 Oxygen Delivery Room Air 01/30/25 09:46 Temperature 97.5 F L 01/30/25 09:46 Pulse Rate 106 H 01/30/25 09:46 Respiratory Rate 20 01/30/25 09:46 Blood Pressure 134/67 01/30/25 09:46 Pulse Oximetry 100 01/30/25 09:46 Oxygen Delivery Room Air 01/30/25 09:46 Reviewed MDM - Medical Clearance MDM Narrative Medical decision making narrative: Patient likely had a pseudo-seizure. However she says she has a history of epileptic seizures. Spine the patient cannot be cleared medically here at [facility] and will need comprehensive workup and further evaluation management before she could be cleared to go to her rehab facility. Advised patient she go to the ER or dry to follow-up with her PCP to obtain medical clearance. Discussed physical exam findings. Advised supportive measures and signs/symptoms to go to the ER. Pt is appropriate for outpt treatment and f/u. Differential Diagnosis Differential diagnosis: Likely other (Seizure, pseudo seizure, medical clearance, syncope) Critical Care Time Critical Care Time Critical Care Time: No Discharge Plan Discharge Clinical Impression: Seizure-like activity Patient Disposition: Home Condition: Stable Instructions: Nonepileptic Seizures (ED) Additional Instructions: Please follow-up with your PCP or go to the ER for medical clearance for your possible seizure you had. Patient Language: Japanese Prescriptions: No Action levetiracetam [Keppra] 500 mg tablet 500 mg PO BID Qty: 30 0RF Follow-up/Referrals: PHYSICIAN,INORGANIC CHEMICAL TECHNICIAN [Primary Care Provider, Internal Medicine] Time of Disposition: 09:55
== END 2025-01-30 09:58 | disposition home or self-care (01) ==
DX: R56.9 Unspecified convulsions (principal); F17.210 Nicotine dependence, cigarettes, uncomplicated
CPT/HCPCS: 99211; G0463

== ENCOUNTER 2025-05-11 16:03 | Emergency (ER) | payer OTHER, SELFPAY ==
[2025-05-11 16:16] VITALS: BP 125/52; PULSE 88; RESP 20; TEMP 36.9; O2SAT 100
--- NOTE | 2025-05-11 17:11 | ED.GENADULT ---
HPI - General Adult General Chief complaint: Extremity Problem,Nontraumatic Stated complaint: Numb right hand Time Seen by Provider: 05/11/25 17:05 Source: patient, RN notes reviewed and old records reviewed Mode of arrival: ambulatory Limitations: no limitations History of Present Illness HPI narrative: 39 YEAR OLD FEMALE WHO PRESENTS TO [facility] WITH COMPLAINTS OF right hand numbness and tingling and shooting pains since awakening today. 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 Patient also reoorts 1 week duration of cough with some congestion and chest discomfort with her cough.no fevers sore throat or ear pain voiced.. MD complaint: right hand Onset (ago): day(s) (today her right hand and 1 week cough) Radiation: extremity (up into arm) Severity scale (1-10): 8 Quality: other (shooting pain) Treatments prior to arrival: none Related Data Home Medications ?Medication ?Instructions ?Recorded ?Confirmed ?Last Taken ?Type atomoxetine 40 mg capsule mg PO 05/11/25 Unknown History buspirone 15 mg tablet mg 05/11/25 Unknown History naltrexone microspheres 380 mg 380 mg IM ONCE 05/11/25 Unknown History intramuscular suspension,extended release (Vivitrol) olanzapine 5 mg tablet mg 05/11/25 Unknown History Allergies Allergy/AdvReac Type Severity Reaction Status Date / Time naproxen AdvReac Intermediate Nausea and Verified 05/11/25 16:28 Vomiting Review of Systems Review of Systems: CONSTITUTIONAL: Denies fever, chills, or sweats. EYES: Denies visual changes, redness, or discharge. ENT: reports rhinorrhea, congestion,no sore throat, or otalgia. CARDIOVASCULAR: Denies chest pain, palpitations, or edema. RESPIRATORY: reports cough denies dyspnea. GASTROINTESTINAL: no abdominal pain, nausea, vomiting, or diarrhea. GENITOURINARY: Denies dysuria or hematuria. SKIN: Denies rash or itching. MUSCULOSKELETAL: Denies back pain, joint pain, or myalgia.reports numbness in hand and shooting pain up into arm NEUROLOGIC: Denies headache, numbness reported right hand, no weakness. PSYCHIATRIC: positive for anxiety or depression. All systems reviewed & are unremarkable except as noted in HPI and below PMFSH Past Medical History Medical History (Updated 05/13/25 @ 21:37 by Gloria Farrell APRN) Hepatitis C Anxiety ADHD (attention deficit hyperactivity disorder) Methamphetamine use Heroin abuse Seizures Surgical History Surgical History (Updated 05/13/25 @ 21:06 by Gloria Farrell APRN) H/O tubal ligation History of tonsillectomy Social History Social History (Updated 05/13/25 @ 21:07 by Gloria Farrell APRN) Social History: Heroin use. The patient has had 2 biological children and they have been placed with DCFS. She lives with her boyfriend. Code status full code Smoking packs per day: 1 Smoking cigarettes per day: 20.0 Smoking status: Current every day smoker Tobacco type: cigarettes Alcohol intake: never Substance use type: opiates Other substance usage details: past heroin and fentanyl use Last use: STATES LAST USED METH ABOUT 3 WEEKS AGO 05/11/2025 relapsed Lack of Transportation: No Lack of Food: Never True Current Housing: I Have Housing Concerned About Future Housing: No Difficulty Paying Gas/Electric Bills: No Difficulty Paying for Meds: Decline to Answer Currently Unemployed: Decline to Answer Education: Decline to Answer Difficulty w/ Childcare or Family Care: Decline to Answer Gender identity (if verbalized by the patient): Female Spiritual care concerns: No Comments At time of signature, agree with nursing past medical, surgical, social and family history. There is no relevant family history pertinent to the presenting complaint Exam Narrative: GENERAL: Well-appearing, well-nourished, and in no acute distress.afebrile HEAD: Normocephalic, atraumatic. EYES: PERRLA and EOMI. ENT: Nares clear, no rhinorrhea or epistaxis. Mucous membranes moist.RM's normal throat pink with tonsils absent NECK: Supple.no lymphadenopathy CHEST: Clear to auscultation. No respiratory distress. occasional cough noted SAO2 100% on room air HEART: Regular rate and rhythm. No murmur heard. Normal peripheral pulses. ABDOMEN: Soft, nontender, nondistended, normal active bowel sounds. EXTREMITIES: Normal range of motion. No edema.Reports numbness with shooting pain in hand which goes into her distal arm, strong right radial pulse, nail beds lula briskly, able to move hand and fingers and wrist without difficulty,no specific pattern of stated numbness in hand SKIN: Warm, dry, no rash. NEURO: No focal deficits. Alert and oriented x3., Course Course Level of Care: Express Care Visit Vital Signs Vital signs: Vital Signs Temperature 36.9 C 05/11/25 16:16 Pulse Rate 88 05/11/25 16:16 Respiratory Rate 20 05/11/25 16:16 Blood Pressure 125/52 L 05/11/25 16:16 Pulse Oximetry 100 05/11/25 16:16 Oxygen Delivery Room Air 05/11/25 16:16 Temperature 36.9 C 05/11/25 16:16 Pulse Rate 88 05/11/25 16:16 Respiratory Rate 20 05/11/25 16:16 Blood Pressure 125/52 L 05/11/25 16:16 Pulse Oximetry 100 05/11/25 16:16 Oxygen Delivery Room Air 05/11/25 16:16 reviewed MDM MDM Narrative Medical decision making narrative: Patient reports numbness of right hand with shooting pains in distal wrist and forearm elisa prescribe prednisone for 5 days and recommended splint to be worn to right hand during sleep and Tylenol for pain,Advised supportive measures and signs/symptoms to go to the ER. Pt is appropriate for outpt treatment and f/u. Differential Diagnosis Differential Diagnosis: Differential diagnostic considerations for upper extremity injury include sprain/strain of wrist, fracture of wrist, finger sprain, dislocation of finger, fracture of hand, dislocation of shoulder, fracture of humerus, fracture of clavicle, laceration, tendon injury, carpal tunnel syndrome., tendonitis Critical Care Time Critical Care Time Critical Care Time: No Discharge Plan Discharge Clinical Impression: Tendinitis of right hand Patient Disposition: Home Condition: Stable Instructions: Antibiotic Form, Tendinitis (ED) Additional Instructions: Recommend hand splint to right hand to wear at night,may use ice or heat to forearm for comfort. Tylenol for pain Follow-up with orthopedic surgeon or hand surgery if continued problems Follow-up with PCP if further problems or concerns Ice to the area 20-30 minutes 4-6 times a day Elevate above heart If your symptoms persist, change or worsen significantly before you can contact your personal physician then please, without delay, go to the emergency department for further evaluation. Follow-up with PCP in 7-10 days or sooner if needed Steroid as prescribed take with food. Patient Language: Faroese Prescriptions: New prednisone 20 mg tablet 20 mg PO BID Qty: 10 0RF Rx Instructions: take with food acetaminophen 500 mg tablet 500 mg PO QID PRN (Reason: fever or pain) Qty: 30 0RF No Action olanzapine 5 mg tablet buspirone 15 mg tablet atomoxetine 40 mg capsule PO Vivitrol 380 mg suspension,extended rel recon 380 mg IM ONCE levetiracetam [Keppra] 500 mg tablet 500 mg PO BID Qty: 30 0RF Follow-up/Referrals: UNKNOWN,DOCTOR [Primary Care Provider] Stand Alone Forms: Work/School Release IP Time of Disposition: 17:27 Quality Castell Coma Scale Eyes: Open Verbal: Oriented and Alert Motor: Follows Commands Castell Coma Total Score: 15
--- OUTSIDE RECORDS SUMMARY | 2025-05-11 18:04 | XMS_ITS | Clinical Summary ---
Author Organization [facility] Address [address] [place] [address] Care Team Providers Care Behavioral Therapy Coordinator Name Role Phone No, Physician Primary Care Provider [phone] Allergies Active Allergy Reactions Criticality Noted Date Comments Naproxen Stomach upset Reaction: GI UPSET, Medications acetaminophen (TYLENOL) 500 mg tablet Take 1-2 tablets (500-1,000 mg total) by mouth every 8 (eight) hours as needed for pain Active baclofen (LIORESAL) 10 mg tablet Take 1 tablet (10 mg total) by mouth every 8 (eight) hours as needed for muscle spasms Active cloNIDine (CATAPRES) 0.1 mg tablet Take 1 tablet (0.1 mg total) by mouth every 8 (eight) hours as needed (anxiety) Hold if SBP < 120 or HR < 75 Active hydrOXYzine (ATARAX) 50 mg tablet Take 1 tablet (50 mg total) by mouth 3 (three) times a day as needed for anxiety Active ibuprofen 200 mg tab/cap Take 1-4 tablet/capsul e (200-800 mg total) by mouth every 8 (eight) hours as needed for pain Active ondansetron (ZOFRAN) 4 mg tablet Take 1-2 tablets (4-8 mg total) by mouth every 8 (eight) hours as needed for nausea or vomiting Active traZODone (DESYREL) 100 mg tablet Take 1-2 tablets (100-200 mg total) by mouth nightly as needed for sleep Active busPIRone (BUSPAR) 5 mg tabletIndicatio ns:Generalized Anxiety Disorder Take 1 tablet (5 mg total) by mouth 2 (two) times a day 60 tablet 02/03/2025 02/04/20 Active nicotine (NICODERM CQ) [address] 1 patch on the skin daily for 24 hours 30 patch 02/03/2025 Active levETIRAcetam (KEPPRA) 500 mg tablet Take 1 tablet (500 mg total) by mouth 2 (two) times a day 60 tablet 02/11/2025 02/12/20 26 Active diazePAM (VALIUM) 5 mg tabletIndicatio ns:anxiety Take 1 tablet (5 mg total) by mouth every 12 (twelve) hours as needed for anxiety 10 tablet 02/11/2025 Active Active Problems Problem Noted Date Diagnosed Date Opiate withdrawal 02/01/2025 Severe episode of recurrent major depressive disorder, without psychotic features 10/27/2024 Hx of Polysubstance abuse 06/09/2017 Psychogenic nonepileptic seizure 06/09/2017 Tobacco abuse 06/09/2017 Resolved Problems Problem Noted Date Diagnosed Date Resolved Date Opioid use disorder, moderat e, in early remission, on maintenance therapy, dependence 10/27/2024 10/27/2024 Urinary tract infection without hematuria 10/27/2024 Encounters Date Type Department Care Team Description 04/19/2025 Documentation [facility] Case Management [address] [place] [id number] Jolie Gannon 03/18/2025 Documentation [facility] Case Management [address] [place] [id number] Jolie Gannon 02/19/2025 Documentation [facility] Social Work [address] [place] [address] Nicky Cordoba 02/11/2025 12:13 PM CDT - 02/11/2025 3:30 PM CDT Emergency [address] [address] Alfred Thompson, Seizure-like activity (HCC) (Primary Dx); Anxiety; Elevated serum creatinine Discharge Disposition: Discharge to home or self care from Last 3 Months Immunizations Immunization Administration Dates Next Due Influenza, Quadrivalent, Spl it, Preservative Free, Intramuscular 02/20/2017 Medical History Medical History Date Comments Hepatitis C Polysubstance abuse Seizures (HCC) Social History Tobacco Use Types Packs/Day Years Used Date Smoking Tobacco: Every Day Cigarettes Smokeless Tobacco: Never Tobacco Cessation:Ready to Q uit: No; Counseling Given: No Alcohol Use Standard Drinks/Week Comments No 0 (1 standard drink = 0.6 oz pur e alcohol) PHQ-2 Answer Date Recorded PHQ-2 Total Score (If total score is 3 or more points, staff should administer the PHQ-9) 0 10/27/2024 Social Connection and Isolation Panel Answer Date Recorded In a typical week, how many times do you talk on the phone with family, friends, or neighbors? Twice a week 02/02/2025 How often do you get together with friends or re latives? Twice a week 02/02/2025 How often do you attend pentecostal or amish serv ices? Never 02/02/2025 Do you belong to any clubs o r organizations such as pentecostal groups, unions, fraternal or athletic groups, or school groups? No 02/02/2025 How often do you attend meet ings of the clubs or organizations you belong to? Never 02/02/2025 Are you , , di vorced, , never , or living with a partner? 02/02/2025 Overall Financial Resource Strain (CARDIA) Answe r Date Recorded How hard is it for you to pa y for the very basics like food, housing, medical care, and heating? Not very hard 02/02/2025 Hunger Vital Sign Answer Date Recorded Within the past 12 months, y ou worried that your food would run out before you got the money to buy more. Never true 02/03/20 25 Within the past 12 months, t he food you bought just didn't last and you didn't have money to get more. Never true 02/02/2025 PRAPARE - Transportation Answer Date Re corded In the past 12 months, has l ack of transportation kept you from medical appointments or from getting medications? No 01/2025 In the past 12 months, has l ack of transportation kept you from meetings, work, or from getting things needed for daily living? No 02/02/2025 Housing Stability Vital Sign Answer Ray e Recorded In the last 12 months, was t here a time when you were not able to pay the mortgage or rent on time? No 02/02/2025 In the past 12 months, how m any times have you moved where you were living? 0 02/02/2025 At any time in the past 12 m [facility], were you homeless or living in a [facility] (including now)? No 02/02/2025 [facility] Utilities Answer Date Recorded In the past 12 months has th [employer] Card [employer], gas, oil, or water [employer] threatened to shut off services in your home? No 02/02/2025 Personal Safety Answer Date Recorded Have you ever been in or are you currently in a harmful physical or emotional relationship or is someone making you feel afraid or unsafe? 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 Gender Identity Not on file Sexual Orientation Not on file Last Filed Vital Signs Vital Sign Reading Time Taken Comments Blood Pressure 105/78 02/11/2025 3:25 PM CDT Pulse 94 02/11/2025 3:25 PM CDT Temperature 37.1 C (98.7 F) 02/11/2025 12:23 PM CDT Respiratory Rate 22 02/11/2025 3:25 PM CDT Oxygen Saturation 100% 02/11/2025 3:25 PM CDT Inhaled Oxygen Concentration - - Weight 57 kg (125 lb 10.6 oz) 02/11/2025 12:18 P M CDT Height 160 cm (5' 3) 02/01/2025 6:15 PM CDT Body Mass Index 22.26 02/01/2025 6:15 PM CDT Plan of Treatment Health Maintenance Due Date Last Done Comments Cervical Cancer Screening 1986 DTaP/Tdap/Td Vaccine (1 - Tdap) 1997 Varicella Vaccines (1 of 2 - 13+ 2-dose series) 1999 Hepatitis B Screening 2004 Regular Well Visit/Exam 18-64 2004 Pneumococcal vaccine <65 (1 of 2 - PCV) 2005 HPV Vaccines (1 - 3-dose SCDM series) 2013 Influenza Vaccine (#1) 2025 02/20/2017 Depression Screening 10/27/2025 10/27/2024 Hepatitis C Screening Completed 02/16/2025 Procedures Procedure Name Priority Date/Time Associated Diagnosis Comments POCT HCG, URINE Routine 02/11/2025 1:42 PM CDT MAGNESIUM STAT 02/11/2025 12:44 PM CDT EGFR STAT 02/11/2025 12:44 PM CDT DIFFERENTIAL AUTO STAT 02/11/2025 12: 44 PM CDT ETHANOL STAT 02/11/2025 12:44 PM CDT DRUGS OF ABUSE SCREEN, URINE WITHOUT CONFIRMATION STAT 02/11/2025 12:44 PM CDT HCG, BLOOD, QUANTITATIVE STAT 02/11/2025 12:44 PM CDT PHOSPHORUS STAT 02/11/2025 12:44 PM CDT CREATINE KINASE (CK), TOTAL STAT 02/11/2025 12:44 PM CDT SEPSIS LACTATE WITH REFLEX STAT 02/11/2025 12:44 PM CDT COMPREHENSIVE METABOLIC PANEL STAT 02/11/2025 12:44 PM CDT CBC WITH AUTO DIFFERENTIAL STAT 02/11/2025 12:44 PM CDT ECG 12-LEAD Routine 02/11/2025 12:42 PM CDT from Last 3 Months Results * POCT hCG, urine (02/11/2025 1:42 PM CDT) HCG, ur, POC Negative Negative Lot Number [id number] QC Backgroud Clear Acceptable QC Control Line Acceptable Urine 02/11/2025 1:42 PM CDT us Alfred Thompson DO POINT OF CARE TEST ORDERABL ES Final Result * Sepsis Lactate w/ Reflex (02/11/2025 12:44 PM CDT) Sepsis Lactate 1.1 0.7 - 2.0 mmol/L Blood 02/11/2025 12:4 4 PM CDT 02/11/2025 12:48 PM CDT [facility] Final Result Performing Organization Address City/[facility]/ZIP Co de Phone Number MANUEL [address] [place] [address] * (ABNORMAL) eGFR (02/11/2025 12:44 PM CDT) eGFR 43(L) >=60 mL/min/1. 73 m2 Comment: Interpretive Data Reference Interval Normal >/= 90 mL/min/1.73m2 Mildly decreased* 60 - 89 mL/min/1.73m2 Mildly to moderately decreased 45 - 59 mL/min/1.73m2 Moderately to severely decreased 30 - 44 mL/min/1.73m2 Severely decreased 15 - 29 mL/min/1.73m2 Kidney Failure < 15 mL/min/1.73m2 *Relative to young adult level Estimated glomerular filtration rate is determined by the 2020 CKD-EPI equation recommended by the National Kidney Foundation (A Unifying Approach to GFR Estimation: Recommendations of the NKF-ASK Task Force on Reassessing the Inclusion of Race in Diagnosing Kidney Disease, JASN 2020). The CKD-EPI equation should not be used for patients with unstable renal function and has not been validated in children and those over 70. Current interpretive data was last reviewed 2021. Blood 02/11/2025 12:4 4 PM CDT 02/11/2025 12:49 PM CDT [facility] BLOOD ORDERABLES Final Result Performing Organization Address City/[facility]/ZIP Co de Phone Number CORINNA[address] [place] [address] * Differential, auto (02/11/2025 12:44 PM CDT) Neutrophil abs 3.83 1.50 - 6.50 K/cumm Imm gran abs 0.01 0.00 - 0.10 K/cumm [facility] Lymphocyte abs 1.59 0.80 - 3.30 K/cumm [facility] Monocyte abs 0.54 0.20 - 0.80 K/cumm [facility] Eosinophil abs 0.18 0.00 - 0.50 K/cumm [facility] Basophil abs 0.05 0.00 - 0.10 K/cumm [facility] Neutrophil pct 61.8 % [facility] Comment: Interpretive Data Percent cell count reference ranges are not reported, since discordance with absolute values may lead to misinterpretation of CBC data. Current Interpretive Data was last revised on 2017. Imm gran pct 0.2 % [facility] Comment: Interpretive Data Percent cell count reference ranges are not reported, since discordance with absolute values may lead to misinterpretation of CBC data. Current Interpretive Data was last revised on 2017. Lymphocyte pct 25.6 % [facility] Comment: Interpretive Data Percent cell count reference ranges are not reported, since discordance with absolute values may lead to misinterpretation of CBC data. Current Interpretive Data was last revised on 2017. Monocyte pct 8.7 % [facility] Comment: Interpretive Data Percent cell count reference ranges are not reported, since discordance with absolute values may lead to misinterpretation of CBC data. Current Interpretive Data was last revised on 2017. Eosinophil pct 2.9 % [facility] Comment: Interpretive Data Percent cell count reference ranges are not reported, since discordance with absolute values may lead to misinterpretation of CBC data. Current Interpretive Data was last revised on 2017. Basophil pct 0.8 % [facility] Comment: Interpretive Data Percent cell count reference ranges are not reported, since discordance with absolute values may lead to misinterpretation of CBC data. Current Interpretive Data was last revised on 2017. Blood 02/11/2025 12:4 4 PM CDT 02/11/2025 12:49 PM CDT us Alfred Alegria [facility] LAB BLOOD ORDERABLES Final Result Performing Organization Address [facility] Co de Phone Number MANUEL [address] [address] * CBC with auto differential (02/11/2025 12:44 PM CDT) [facility] WBC 6.20 3.80 - 9.90 K/cumm Hgb 13.0 11.9 - 15.5 g/dL [facility] Hct 39.2 35.6 - 45.5 % [facility] Plt 244 150 - 400 K/cumm [facility] MPV 10.1 9.1 - 12.3 fL [facility] RBC 4.25 3.90 - 5.20 M/cumm [facility] MCV 92.2 81.3 - 96.4 fL [facility] MCH 30.6 27.1 - 33.3 pg [facility] MCHC 33.2 32.3 - 35.7 g/dL [facility] RDW CV 13.9 11.1 - 14.9 % [facility] RDW SD 46.5 35.7 - 48.1 fL [facility] NRBC abs 0.00 0.00 - 0.01 K/cumm [facility] Blood 02/11/2025 12:4 4 PM CDT 02/11/2025 12:49 PM CDT Alfred Alegria [facility] LAB BLOOD ORDERABLES Final Result Performing Organization Address [facility] Co de Phone Number MANUEL [address] [address] * (ABNORMAL) Drugs of Abuse Screen, Urine without Confirmation (02/11/2025 12:44 PM CDT) [facility] Amphetamine, ur Not Detected CutOff 500ng/mL Comment: Interpretive Data - Amphetamines: Samples containing greater than 500 ng/mL d-methamphetamine or other cross-reacting amphetamine compounds are reported as positive. Amphetamine immunoassays are subject to significant false positive rates due to cross-reactivity of non-amphetamine drugs. Confirmatory testing required for definitive results. Current Interpretive Data was last reviewed 2022. Barbiturates, ur Not Detected CutOff 200ng/mL [facility] Comment: Interpretive Data - Barbiturates: Samples containing greater than 200 ng/mL secobarbital or other cross-reacting barbiturate compounds are reported as positive. False positive and false negative results are possible. Confirmatory testing required for definitive results. Current Interpretive Data was last reviewed 2022. Benzodiazepines, ur Screen Positive, presumptive (A) CutOff 100ng/mL [facility] Comment: Interpretive Data - Benzodiazepines: Samples containing greater than 100 ng/mL nordiazepam or other cross-reacting compounds are reported as positive. False positive and false negative results are possible. Confirmatory testing required for definitive results. Current Interpretive Data was last reviewed 2022. Cannabinoids, ur Not Detected CutOff 50 ng/mL [facility] Comment: Interpretive Data - Cannabinoids: Samples containing greater than 50 ng/mL delta-9 THC -COOH or other cross- reacting compounds are reported as positive. False positive and false negative results are possible. Confirmatory testing required for definitive results. Current Interpretive Data was last reviewed 2022. Cocaine, ur Not Detected CutOff 150ng/mL [facility] Comment: Interpretive Data - Cocaine: Samples containing greater than 150 ng/mL benzoylecgonine or other cross- reacting compounds are reported as positive. False positive and false negative results are possible. Confirmatory testing required for definitive results. Current Interpretive Data was last reviewed 2022. Fentanyl, Ur Not Detected CutOff 5 ng/mL [facility] Comment: Interpretive Data - Fentanyl: Samples containing greater than 5 ng/mL norfentanyl, fentanyl, or other cross-reacting fentanyl compounds are reported as positive. False positive and false negative results are possible. Confirmatory testing required for definitive results. Current Interpretive Data was last reviewed 2023. Methadone, ur Not Detected CutOff 300ng/mL [facility] Comment: Interpretive Data - Methadone: Samples containing greater than 300 ng/mL d,l-methadone or other cross-reacting compounds are reported as positive. False positive and false negative results are possible. Confirmatory testing required for definitive results. Current Interpretive Data was last reviewed 2022. Opiates, ur Not Detected CutOff 300ng/mL [facility] Comment: Interpretive Data - Opiates: Samples containing greater than 300 ng/mL morphine or other cross-reacting compounds are reported as positive. False positive and false negative results are possible. Confirmatory testing required for definitive results. Current Interpretive Data was last reviewed 2022. Oxycodone, ur Not Detected CutOff 100ng/mL [facility] Comment: Interpretive Data - Oxycodone: Samples containing greater than 100 ng/mL oxycodone or other cross-reacting compounds are reported as positive. False positive and false negative results are possible. Confirmatory testing required for definitive results. Current Interpretive Data was last reviewed 2022. Phencyclidine, ur Not Detected CutOff 25 ng/mL [facility] Comment: Interpretive Data - Phencyclidine: Samples containing greater than 25 ng/mL phencyclidine or other cross-reacting compounds are reported as positive. False positive and false negative results are possible. Confirmatory testing required for definitive results. Current Interpretive Data was last reviewed 2022. Urine Creatinine 30 mg/dL [facility] Comment: Interpretive Data Urine Creatinine: < 10 mg/dL is extremely dilute = or > 10 but < 20 mg/dL is dilute = or > 20 mg/dL is normal Current Interpretive Data was last revised on 2017. Urine 02/11/2025 12:4 4 PM CDT 02/11/2025 12:49 PM CDT Narrative [facility] - 02/11/2025 1:26 PM CDT Drug of Abuse screening is performed by immunoassay for medical purposes only. This is not to be used for Pain Management purposes. Alfred Thompson DO LAB URINE ORDERABLES Final Result [facility] [address] [facility] Department [place] [address] * hCG, blood, quantitative (02/11/2025 12:44 PM CDT) hCG, quant <5.0 0.0 - 5.0 IUnits/L Comment: Interpretive Data Male: < 5 IU/L Non- premenopausal Female: <5 IU/L [employer] hCG Beta Quant assay procedure was used. Results from different manufacturers or methods may not be comparable. Serial testing should be performed using the same method. Interpretive Data was last revised on 2023 Blood 02/11/2025 12:4 4 PM CDT 02/11/2025 12:49 PM CDT us Alfred Thompson DO LAB BLOOD ORDERABLES Final Result Performing Organization Address [facility] de Phone Number [address] [address] * Phosphorus (02/11/2025 12:44 PM CDT) Pathologist [facility] Phosphorus, pl 3.2 2.3 - 4.5 mg/dL Blood 02/11/2025 12:4 4 PM CDT 02/11/2025 12:49 PM CDT us Alfred Thompson LAB BLOOD ORDERABLES Final Result Performing Organization Address [facility] de Phone Number [address] [address] * Magnesium (02/11/2025 12:44 PM CDT) Pathologist [facility] Magnesium 2.2 1.4 - 2.5 mg/dL Blood 02/11/2025 12:4 4 PM CDT 02/11/2025 12:44 PM CDT us Alfred Thompson LAB BLOOD ORDERABLES Final Result Performing Organization Address [facility] de Phone Number [address] [address] * Creatine kinase (CK), total (02/11/2025 12:44 PM CDT) Pathologist [facility] CK 92 30 - 200 Units/L Blood 02/11/2025 12:4 4 PM CDT 02/11/2025 12:49 PM CDT us Alfred Thompson DO LAB BLOOD ORDERABLES Final Result Performing Organization Address [facility] Co de Phone Number [address] [address] * Ethanol (02/11/2025 12:44 PM CDT) [facility] Ethanol <10 <=10 mg/dL Comment: Interpretive Data Legal limit of intoxication > or = 80 mg/dL Levels > or = 400 mg/dL are potentially TOXIC. Current interpretive data was last revised on 2018. Blood 02/11/2025 12:4 4 PM CDT 02/11/2025 12:49 PM CDT Alfred Thompson DO LAB BLOOD ORDERABLES Final Result Performing Organization Address [facility] de Phone Number [address] [address] * (ABNORMAL) Comprehensive metabolic panel (02/11/2025 12:44 PM CDT) [facility] Sodium 139 135 - 145 mmol/L Potassium, pl 4.7 3.3 - 4.9 mmol/L [facility] Comment:Hemolyzed; Potassium value may be falsely elevated by as much as 1.0 mmol/L. Suggest redraw and reanalysis. Chloride 104 97 - 110 mmol/L [facility] CO2 24 22 - 32 mmol/L [facility] Anion gap 11 2 - 15 mmol/L [facility] BUN 30(H) 6 - 25 mg/dL [facility] Creatinine 1.56(H) 0.60 - 1.10 mg/dL [facility] Glucose 85 70 - 199 mg/dL [facility] Comment: Interpretive Data Fasting glucose >/= 126 mg/dl is diagnostic for diabetes. Fasting is defined as no caloric intake for at least 8 hours. Fasting glucose between 100 mg/dl to 125 mg/dl is diagnostic of prediabetes. In a patient with classic symptoms of hyperglycemia or hyperglycemic crisis, a random glucose >/= 200 mg/dl is diagnostic for diabetes. In the absence of unequivocal hyperglycemia, results should be confirmed by repeat testing. The classification and Diagnosis of Diabetes Diabetes Care 202; 46: S19-S40. Current interpretive data was last revised 2022. Calcium 10.1 8.5 - 10.3 mg/dL [facility] Bilirubin, total 0.3 0.1 - 1.2 mg/dL [facility] Protein, pl 7.7 6.5 - 8.5 g/dL [facility] Albumin 4.2 3.5 - 5.0 g/dL [facility] Alk phos 69 40 - 130 Units/L [facility] ALT 19 7 - 45 Units/L [facility] AST 33 10 - 45 Units/L [facility] Comment:Hemolyzed; result ma y be falsely elevated Blood 02/11/2025 12:4 4 PM CDT 02/11/2025 12:49 PM CDT Alfred Thompson DO LAB BLOOD ORDERABLES Final Result Performing Organization Address City/[facility]/ZIP Co de Phone Number [facility] [address] [facility] Department [place] [address] * ECG 12 lead (02/11/2025 12:42 PM CDT) Pathologist [facility] Ventricular Rate EKG/Min [address] [facility] Atrial Rate 82 BPM [facility] SC-Interval (MSEC) [address] [facility] QRS-Interval (MSEC) 78 ms [facility] QT-Interval (MSEC) 364 ms [facility] QTc 425 ms [facility] P Wink 28 degrees [facility] R Wink 88 degrees [facility] T Wink 57 degrees [facility] Diagnosis Normal sinus rhythm Normal ECG When compared with ECG of 01-FEB-2025 10:02, Nonspecific T wave abnormality has replaced inverted T waves in Anterior leads Confirmed by CARMEN MACARIO M.D. ([id number]) on 02/12/2025 7:08:10 PM [facility] 02/11/2025 12:4 2 PM CDT 02/12/2025 7:08 PM CDT Alfred Thompson DO ECG ORDERABLES Final Resul t Performing Organization Address City/[facility]/ZIP Co de Phone Number [facility] from Last 3 Months Insurance [facility] Member Subscriber Plan / Payer ( fective 2017-Present) Name:SherylShannan farrell Relation to Subscriber:Self Name:SherylmatyCatalina cadetsy Arie Payer ID:[id number] (NAIC) Group ID:Not on file Type:MEDICAID RISK OTHER Address: [address] [employer] Advance Directives For more information, please contact: [phone] Documents on File Type Date Recorded 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
--- OUTSIDE RECORDS SUMMARY | 2025-05-11 18:04 | XMS_ITS | Encounter Summary ---
Author Organization [facility] Healthcare Address [address] [place] [address] Care Team Providers Care Chip Washer Name Role Phone No, Physician Primary Care Provider Encounter Details Date Type Department Care Team (Late st Contact Info) Description 06/11/2017 Documentation [facility] [address] [place] [address] Yanira Garrison MD [address] [address] Social History Tobacco Use Types Packs/Day Years Used Date Smoking Tobacco: Every Day Cigarettes Smokeless Tobacco: Never Alcohol Use Standard Drinks/Week Comments No 0 (1 standard drink = 0.6 oz pur e alcohol) Comments Unknown Sex and Gender Information Value Date Recorded Sex Assigned at Not on file Legal Sex Female 2:33 AM EMPLOYEE HEALTH RN Gender Identity Not on file Sexual Orientation Not on file documented as of this encounter Functional Status * Question Answer Date of Assessment Author MAP (mmHg) 58 06/11/2017 11:15 PM EMPLOYEE HEALTH RN Milka Garcia RN * Campbell Fall Risk Question Answer Date of Assessment Author History of Falling 0 06/12/2017 8:15 AM EMPLOYEE HEALTH RN Joanna Montelongo RN Secondary Diagnosis 15 06/12/2017 8:15 AM CS Joanna Otto RN Ambulatory Aids 0 06/12/2017 8:15 AM Joanna Tang RN Intravenous Therapy/Heparin/Saline Lock 20 06/12/2017 8:15 AM Arie Og RN Gait/Transferring 0 06/12/2017 8:15 AM Joanna Og RN Mental Status 0 06/12/2017 8:15 AM Joanna Fernandez RN * Bill Scale Question Answer Date of Assessment Author Sensory Perceptions 4 06/12/2017 8:15 AM Joanna Augustine RN Moisture 4 06/12/2017 8:15 AM Joanna Matt RN Activity 3 06/12/2017 8:15 AM Joanna Matt RN Mobility 3 06/12/2017 8:15 AM Joanna Matt RN Nutrition 3 06/12/2017 8:15 AM Joanna Matt RN Friction and Shear 3 06/12/2017 8:15 AM Joanna Og RN Bill Scale Score 20 06/12/2017 8:15 AM Joanna Og RN * Question Answer Date of Assessment Author BP Location Right arm 06/12/2017 3:46 PM Mallory Mckeon BP Method Automatic 06/12/2017 3:46 PM Mallory Mckeon * Fall Risk Interventions Question Answer Date of Assessment Author All Low Fall Interventions Applied Yes 06/12/2017 8:15 AM Joanna Og RN All Moderate Fall Interventi ons Applied Yes 06/12/2017 8:15 AM Joanna Og RN All High Fall Risk Intervent ions Applied No 06/12/2017 8:15 AM Joanna Og , ANGUS * B.M.A.T. - Bedside Mobility Assessment Tool for Nurses Question Answer Date of Assessment Author Is patient able to participate in the BMAT? Yes 06/12/2017 8:15 AM Joanna Og RN BMAT Level Level 4 - Green 06/12/2017 8:15 AM Joanna Tang, ANGUS * Integumentary Question Answer Date of Assessment Author Integumentary (WDL) WDL 06/12/2017 8:15 AM Joanna Augustine RN * Question Answer Date of Assessment Author Affect Anxious/Worried 06/12/2017 8:15 AM Joanna Tang RN Mood Anxious/Worried;Frus trated;Irri table 06/12/2017 8:15 AM Joanna Og, ANGUS * Question Answer Date of Assessment Author Percent Meal Eaten (%) 50 06/12/2017 3:49 PM Mallory Mckeon * Question Answer Date of Assessment Author BP Location Right arm 06/12/2017 3:46 PM Mallory Mckeon BP Method Automatic 06/12/2017 3:46 PM Mallory Mckeon * Question Answer Date of Assessment Author Bed In Lowest Position Yes 06/12/2017 8:15 AM Joanna Og RN Bed Wheels Locked Yes 06/12/2017 8:15 AM Joanna Og, ANGUS * Fall Risk Interventions Question Answer Date of Assessment Author All Low Fall Interventions Applied Yes 06/12/2017 8:15 AM Joanna Og RN All Moderate Fall Interventi ons Applied Yes 06/12/2017 8:15 AM Joanna Og RN All High Fall Risk Intervent ions Applied No 06/12/2017 8:15 AM Joanna Og RN * Question Answer Date of Assessment Author Hygiene Level of Assistance Minimal assist 06/11/2017 8:29 PM Francoise De La Cruz, RN * ADL Screening Question Answer Date of Assessment Author Patient's Vision Adequate to Safely Complete Daily Activities Yes 06/11/2017 6:00 AM Francoise De La Cruz, RN Patient's Judgement Adequate to Safely Complete Daily Activities Yes 06/11/2017 6:00 AM Francoise De La Cruz, RN Patient's Memory Adequate to Safely Complete Daily Activities Yes 06/11/2017 6:00 AM Francoise De La Cruz, RN Patient Able to Express Needs/Desires Yes 06/11/2017 6:00 AM Francoise De La Cruz, RN Dressing Independent 06/11/2017 6:00 AM Francoise De La Cruz, RN Grooming Independent 06/11/2017 6:00 AM Francoise De La Cruz, RN Feeding Independent 06/11/2017 6:00 AM Francoise De La Cruz, RN Bathing Independent 06/11/2017 6:00 AM Francoise De La Cruz, RN Toileting Independent 06/11/2017 6:00 AM Francoise De La Cruz, RN In/Out Bed Independent 06/11/2017 6:00 AM Francoise De La Cruz, RN Walks in Home Independent 06/11/2017 6:00 AM Francoise Oneil, RN Weakness of Legs None 06/11/2017 6:00 AM Francoise Alfred, RN Weakness of Arms/Hands None 06/11/2017 6:00 AM Francoise De La Cruz, RN Hearing - Right Ear Functional 06/11/2017 6:00 AM CS Francoise Celeste, RN Hearing - Left Ear Functional 06/11/2017 6:00 AM Francoise De La Cruz, RN Dominant hand? Right 06/11/2017 6:00 AM Francoise Ding, RN Decline in ADLs in last 2 weeks? No 06/11/2017 6:00 AM Francoise De La Cruz, RN * Therapy Consults Question Answer Date of Assessment Author PT Evaluation Needed 2 06/11/2017 4:00 AM Corinne Diggs RN OT Evaluation Needed 2 06/11/2017 4:00 AM Corinne Diggs, ANGUS SNAP SHEARER Evaluation Needed 2 06/11/2017 4:00 AM Corinne Lopes RN * Assistive Devices Question Answer Date of Assessment Author Assistive Devices/DME None 06/11/2017 4:00 AM Corinne Lopes, ANGUS * RN Oversight of Sitter Question Answer Date of Assessment Author RN Safety Check No unsafe behaviors observed, safe environment maintained 06/12/2017 8:15 AM Joanna Og RN Sitter Continued 06/12/2017 8:15 AM Joanna Matt RN Sitter Type Suicide 06/12/2017 8:15 AM Joanna Matt RN * Nutrition Question Answer Date of Assessment Author Feeding Level of Assistance Able to feed self 06/12/2017 8:15 AM Joanna Og RN Appetite Good 06/12/2017 8:15 AM Joanna Fernandez RN documented as of this encounter Mental Status * Question Answer Entry Date Author Level of Consciousness Alert 06/12/2017 8:15 AM Joanna Og RN Orientation Oriented X4 06/12/2017 8:15 AM Joanna Matt, RN Neuro (WDL) X 06/12/2017 8:15 AM Joanna Matt RN documented in this encounter Plan of Treatment Not on file documented as of this encounter Visit Diagnoses Not on filedocumented in this encounter Additional Health Concerns Infection Onset Date Last Indicated Resolved Time MRSA Comment:02/19/17 Nasal Swab negative for MRSA, need one more negative to clear MRSA flag MRSA+Vaginal wnd 11/22/15 11/23/2013 11/23/2013 01/11/2021 5:00 AM CDT documented as of this encounter Care Teams Chip Washer Relationship Specialty Start Date End Date No, Physician PCP - General 09/07/16 documented as of this encounter
--- OUTSIDE RECORDS SUMMARY | 2025-05-11 18:04 | XMS_ITS | Clinical Summary ---
Author Organization [facility] Address [address] [place] [address] Phone Care Team Providers Care Director Of Intercollegiate Athletics Name Role Phone Nilson Ledesma APRN, HOPPER FEEDER Primary Care Provid er Lalita Pizarro APRN, ARTS THERAPIST Unavailable [phone] Allergies Active Allergy Reactions Criticality Noted Date [...] Comments Blood Pressure 134/76 06/14/2023 2:24 PM MEMBERSHIP COUNSELOR Pulse 78 06/14/2023 2:24 PM MEMBERSHIP COUNSELOR Temperature 36.1 C (97 F) 06/14/2023 2:24 PM MEMBERSHIP COUNSELOR Respiratory Rate 18 04/19/2023 12:58 PM MEMBERSHIP COUNSELOR Oxygen Saturation 98% 06/14/2023 2:24 PM MEMBERSHIP COUNSELOR Inhaled Oxygen Concentration - - Weight 66.7 kg (147 lb) 06/14/2023 2:24 PM MEMBERSHIP COUNSELOR Height 160 cm (5' 3) 06/14/2023 2:24 PM MEMBERSHIP COUNSELOR Body Mass Index 26.04 06/14/2023 2:24 PM MEMBERSHIP COUNSELOR Plan of Treatment Health Maintenance Due Date Last Done Comments TdaP Immunization 1986 Varicella Immunization (1 of 2 - 13+ 2-dose series) 11/07/1999 Hepatitis B Immunization (1 of 3 - + 3-dose series) 2005 Pneumococcal Immunization Co mbined (1 of 2 - PCV) 2005 Pap Smear 11/07/2007 Cervical Cancer Screening (CCS) 2016 HPV/Cotest 2016 Influenza Immunization (#1) 2025 02/20/2017 SARS-COV-2 Immunization (1 - 2025-26 season) 2025 Respiratory Syncytial Virus (RSV) Immunization (Adult) (1 - 1-dose 75+ series) 2061 Human Papillomavirus (HPV) Immunization (No Doses Required) Completed Meningococcal Immunization (ACWY) Aged Out No longer [...] measures to stabilize the patient. Care Teams Director Of Intercollegiate Athletics Relationship Specialty Start Date End Date Nilson Ledesma APRN, HOPPER FEEDER PCP - General Advanced Practice Nurse 02/08/23 Lalita Pizarro APRN, ARTS THERAPIST [address] [place] [address] Nurse Practitioner Advanced Practice Nurse 06/14/23
--- OUTSIDE RECORDS SUMMARY | 2025-05-11 18:04 | XMS_ITS | Encounter Summary ---
Author Organization [facility] Healthcare Address [address] [place] [address] Care Team Providers Care Rouge Mixer Name Role Phone No, Physician Primary Care Provider [phone] Encounter Details Date Type Department Care Team (Late st Contact Info) Description 07/17/2017 Documentation [facility] ICU [address] [place] [address] Lalita Mckeon RN Social History Tobacco Use Types Packs/Day Years Used Date Smoking Tobacco: Every Day Cigarettes Smokeless Tobacco: Never Alcohol Use Standard Drinks/Week Comments No 0 (1 standard drink = 0.6 oz pur e alcohol) Comments Unknown Sex and Gender Information Value Date Recorded Sex Assigned at Not on file Legal Sex Female 2:33 AM CONTINUOUS DRYOUT OPERATOR HELPER Gender Identity Not on file Sexual Orientation Not on file documented as of this encounter Functional Status * Question Answer Date of Assessment Author MAP (mmHg) 198 07/17/2017 11:00 AM Aleyda Lowery RN * Question Answer Date of Assessment Author BP Location Right arm 07/17/2017 10:35 AM Aleyda Lowery, ANGUS BP Method Automatic 07/17/2017 10:35 AM Aleyda Lowery RN * Campbell Fall Risk Question Answer Date of Assessment Author History of Falling 25 07/17/2017 10:35 AM Aleyda Greene, RN Secondary Diagnosis 0 07/17/2017 10:35 AM Aleyda Case, ct scan special procedures technologist Aids 0 07/17/2017 10:35 AM CONTINUOUS DRYOUT OPERATOR HELPER G rant, Aleyda C., RN Intravenous Therapy/Heparin/ Saline Lock 0 07/17/2017 10:35 AM Aleyda Duarte, RN Gait/Transferring 0 07/17/2017 10:35 AM Aleyda Duarte, RN Mental Status 0 07/17/2017 10:35 AM Aleyda Gray, RN * Bill Scale Question Answer Date of Assessment Author Sensory Perceptions 4 07/17/2017 10:35 AM Aleyda Case, RN Moisture 4 07/17/2017 10:35 AM Aleyda Lowery, RN Activity 2 07/17/2017 10:35 AM Aleyda Lowery, RN Mobility 4 07/17/2017 10:35 AM Aleyda Lowery, RN Nutrition 3 07/17/2017 10:35 AM Aleyda Lowery, RN Friction and Shear 3 07/17/2017 10:35 AM Aleyda Greene, RN Bill Scale Score 20 07/17/2017 10:35 AM Aleyda Greene, RN * Fall Risk Interventions Question Answer Date of Assessment Author All Low Fall Interventions Applied Yes 2017 10:35 AM Aleyda Duarte, RN * B.M.A.T. - Bedside Mobility Assessment Tool for Nurses Question Answer Date of Assessment Author Is patient able to participate in the BMAT? Yes 07/17/2017 10:00 AM Jasmin Mckeon, ANGUS BMAT Level Level 4 - Green 07/17/2017 10:00 AM Jasmin Schroeder, RN * Integumentary Question Answer Date of Assessment Author Skin Color Appropriate for ethnicity 07/17/2017 10:35 AM Aleyda Duarte, RN Skin Condition/Temp Warm;Dry 07/17/2017 10:35 AM Aleyda Case, RN Integumentary (WDL) WDL 07/17/2017 10:35 AM Aleyda Case, RN * Question Answer Date of Assessment Author BP Location Right arm 07/17/2017 10:35 AM Aleyda Lowery, RN BP Method Automatic 07/17/2017 10:35 AM Aleyda Lowery, RN * Question Answer Date of Assessment Author Affect Anxious/Worried;Hostile 07/17/2017 10:35 AM Aleyda Duarte, RN Mood Angry;Frustrated;Irritable 07/17/2017 10: 35 AM Aleyda Duarte, ANGUS * Question Answer Date of Assessment Author Bed In Lowest Position Yes 07/17/2017 10:35 A M Aleyda Duarte, RN Bed Wheels Locked Yes 07/17/2017 10:35 AM Aleyda Duarte, RN * Fall Risk Interventions Question Answer Date of Assessment Author All Low Fall Interventions Applied Yes 2017 10:35 AM Aleyda Duarte, RN * Question Answer Date of Assessment Author Hygiene Brittnee care 07/17/2017 10:35 AM Aleyda Lowery RN documented as of this encounter Mental Status * Question Answer Entry Date Author Level of Consciousness Agitation 07/17/2017 10:35 A M Aleyda Duarte, RN Orientation Oriented X4 07/17/2017 10:35 AM Aleyda Loweyr RN Neuro (WDL) X 07/17/2017 10:35 AM Aleyda Lowery RN * Question Answer Entry Date Author Neuro (WDL) X 07/17/2017 8:00 AM Jasmin Thomas RN Other Neuro Symptoms Anxiety;Irritable 07/17/2017 8:00 AM Jasmin Mckeon, ANGUS documented in this encounter Plan of Treatment [...] documented as of this encounter Care Teams Rouge Mixer Relationship Specialty Start Date End Date No, Physician PCP - General 09/07/16 documented as of this encounter
--- OUTSIDE RECORDS SUMMARY | 2025-05-11 18:04 | XMS_ITS | Clinical Summary ---
Author Organization [facility] Address [address] [place] [address] Care Team Providers Care Vegetable Tier Name Role Phone Nilson Ledesma NP Primary Care Provider [phone] Allergies No known active allergies Medications No known medications Social History Tobacco Use Types Packs/Day Years Used Date Smoking Tobacco: Every Day Cigarettes 06 21 Started: 1999 Smokeless Tobacco: Never Tobacco Cessation:Ready to Q uit: Not Asked; Counseling Given: Not Answered Comments Unknown Sex and Gender Information Value Date Recorded Sex Assigned at Not on file Legal Sex Female 9:35 AM CDT Gender Identity Not on file Sexual Orientation Not on file Last Filed Vital Signs Vital Sign Reading Time Taken Comments Blood Pressure 98/58 02/12/2024 12:00 PM CDT Pulse 60 02/12/2024 12:00 PM CDT Temperature 36.6 C (97.9 F) 02/12/2024 9:39 AM CDT Respiratory Rate 21 02/12/2024 12:00 PM CDT Oxygen Saturation 98% 02/12/2024 12:00 PM CDT Inhaled Oxygen Concentration - - Weight 67 kg (147 lb 11.3 oz) 02/12/2024 9:39 AM CDT Height 160 cm (5' 3) 02/12/2024 9:39 AM CDT Body Mass Index 26.17 02/12/2024 9:39 AM CDT Plan of Treatment Health Maintenance Due Date Last Done Comments Cervical Cancer Screening Pa p Smear (Age 30 to 64) Every 3 Years 1986 Annual Physical 1989 Hepatitis C 2004 DTaP, Tdap and Td Vaccines ( 1 - Tdap) 2005 Hepatitis B Vaccines (1 of 3 - 19+ 3-dose series) 2005 Pneumococcal Vaccine: Pediat rics (0 to 5 Years) and At-Risk Patients (6 to 49 Years) (1 of 2 - PCV) 2005 HPV Vaccines (1 - 3-dose SCD M series) 2013 Cervical Cancer Screening Pa p with HPV Testing (Age 30 to 64) Every 5 Years 2016 Cervical Cancer Screening with HPV 2016 COVID-19 Vaccine (2024-2 6 season) 2025 Influenza Adult (#1) 2025 02/20/2017 Hepatitis A Vaccines Aged Out No long er eligible based on patient's age to complete this topic Meningococcal B Vaccine Aged Out No l onger eligible based on patient's age to complete this topic Meningococcal Vaccine Aged Out No judy vaishnavi eligible based on patient's age to complete this topic RSV Immunizations Under 20 Months Aged Out No longer eligible based on patient's age to complete this topic Insurance [place] Care Teams Vegetable Tier Relationship Specialty Start Date End Date Nilson Ledesma NP PCP - General NURSE PRACTITIONER 02/12/24
== END 2025-05-11 17:30 | disposition home or self-care (01) ==
PROVIDERS: Emergency Provider Registered Nurse
DX: M67.843 Other specified disorders of tendon, right hand (principal); F41.9 Anxiety disorder, unspecified; F90.9 Attention-deficit hyperactivity disorder, unspecified type; G40.909 Epilepsy, unspecified, not intractable, without status epilepticus; F17.210 Nicotine dependence, cigarettes, uncomplicated; F11.90 Opioid use, unspecified, uncomplicated
CPT/HCPCS: 99213; G0463